=== PATIENT | female | born 1970 | race Caucasian/White ===

== ENCOUNTER 2020-04-02 06:53 | Outpatient (NON) | payer BC, SELFPAY ==
[2020-04-02 21:43] LABS: SARS-CoV-2 RNA PCR Negative
== END 2020-04-02 06:54 ==
PROVIDERS: PCP Family Medicine; Visit Provider Nurse Practitioner Family
DX: Z20.828 Contact with and (suspected) exposure to other viral communicable diseases (principal)
CPT/HCPCS: 87635; C9803; U0003

== ENCOUNTER 2020-04-09 16:52 | Outpatient (CLI) | payer BC, SELFPAY ==
--- NOTE | ~2020-04-09 | MM_ITS ---
EXAMINATION: MM screening [facility] BI w robbie HISTORY: Screening mammogram TECHNIQUE: Craniocaudal and mediolateral oblique 3-D tomosynthesis images were obtained and synthetic 2-D images were generated. CAD analysis was submitted and interpreted. COMPARISON: 11/16/2017, 10/28/2016, 11/05/2014 BREAST PARENCHYMAL COMPOSITION: There are scattered areas of fibroglandular density. FINDINGS: There is no evidence of suspicious mass, calcification, or architectural distortion to sugg est malignancy in either breast. There has been no suspicious interval change. IMPRESSION: 1. No mammographic evidence of malignancy. 2. Recommend routine screening mammography in one year. BI-RADS Category 1: Negative Reviewed, dictated and finalized at location A.
== END 2020-04-09 16:53 | disposition home or self-care (01) ==
PROVIDERS: PCP Family Medicine; Visit Provider Obstetrics & Gynecology
DX: Z12.31 Encounter for screening mammogram for malignant neoplasm of breast (principal)
CPT/HCPCS: 77063; 77067

== ENCOUNTER 2020-12-05 06:47 | Outpatient (CLI) | payer BC, SELFPAY ==
[2020-12-05 07:30] LABS: Hematocrit 42.2 % (37.0-47.0); Hemoglobin 14.6 g/dL (12.0-15.0); Mean Corpuscular HGB Conc 34.6 g/dl (32-36); Mean Corpuscular Hemoglobin 30.8 pg (26-34); Mean Platelet Volume 10.8 fl (7.4-10.4); Platelet Count Result 270 k/mm3 (150-375); Red Blood Count 4.74 M/mm3 (4.2-5.4); Red Cell Distribution Width 11.8 % (11.5-14.5); White Blood Count 4.6 K/mm3 (4.5-10.0)
[2020-12-05 07:41] LABS: Albumin Level 4.5 g/dL (3.5-5.1); Anion Gap 8 mmol/L (8-16); Blood Urea Nitrogen 21 mg/dL (7-17); Calcium 9.5 mg/dL (8.4-10.2); Carbon Dioxide 27 mmol/L (22-30); Chloride 103 mmol/L (98-107); Estimated Glomerular Filt Rate > 60; Glucose 86 mg/dL (65-105); Potassium 3.8 mmol/L (3.4-5.0); Sodium 138 mmol/L (137-145)
[2020-12-05 07:48] LABS: Prealbumin 19.5 mg/dL (17.6-36.0)
[2020-12-05 07:56] LABS: Iron 88 ug/dL (37-170)
== END 2020-12-05 06:48 | disposition home or self-care (01) ==
PROVIDERS: PCP Family Medicine; Visit Provider Surgery Plastic and Reconstructive Surgery
DX: Z01.818 Encounter for other preprocedural examination (principal)
CPT/HCPCS: 36415; 80048; 82040; 83540; 84134; 85027

== ENCOUNTER 2021-01-12 00:24 | Day surgery (SDC) | payer OTHER, SELFPAY ==
[2021-01-05 15:21] VITALS: BMI 27.0
[2021-01-12] VITALS (10 sets, daily range): BP systolic 105–134; BP diastolic 68–80; PULSE 70–88; RESP 12–18; TEMP 36.1–37; O2SAT 96–100; BMI 28.8
--- NOTE | 2021-01-12 06:42 | WPDHPUPDATE1 ---
History and Physical Update Update Date/Time: 01/12/21 06:42 History and Physical has been reviewed, including an updated exam of the patient. There are NO changes in the patient's condition. Risks, benefits, and alternatives have been discussed and questions answered. Patient agrees to proceed with procedure.
--- NOTE | 2021-01-12 06:53 | W.PM.PROC2 ---
Procedure Note - Detailed Date of Procedure 01/12/21 Pre-op Diagnosis skin laxity Post-op Diagnosis same Procedure Performed 1. Progressive tension abdominoplasty 2. Medial thigh lift Surgeon David Bledsoe MD Anesthesia general Findings Port identified ruth-umbilical. No evidence of injury. Placement now just to the left of umbilicus. Port access is at upper aspect of umbilicus where it enters fascia. Lipoaspirate thighs 2,000cc Tissue removed thighs: Right - 147.9 grams Left - 168.5 grams Description of Procedure She is here today for abdominoplasty and medial thigh lift. Previously and again today the risks, benefits, alternatives were discussed in extensive detail. I wanted them to be very realistic about the risks involved as well as expectations. We discussed aftercare and what to monitor for. I was very upfront about the risks of wound breakdown leading to loss of skin, open wounds, and need for additional procedures with permanent abdominal deformity. She understands she will likely have horizontal laxity at the end of the procedure and she declines a vertical scar such as humera toya lis. We discussed DVT/PE risks and management. Made sure answered all of their questions to their satisfaction today and consent was obtained. They were marked in the preoperative holding area with their verification. The patient was taken to the operating room placed supine on the operating table. Anesthesia was provided by anesthesiology. A Hyatt catheter was started. They were prepped and draped in a standard sterile fashion. A surgical time-out was taken. Thighs Stab incisions were made and used a tumescent solution on the thighs. Once adequate time for hemostasis I completed suction lipectomy based on S.A.F.E. technique multiple planes and passes. I completely de-fat of the central resection area. Using a strip avulsion technique a 10 blade was used to make an incision from proximal to distal I removed the intervening soft tissue. This was a closed you go fashion making sure tension-free closure using 2-0 Vicryl followed by 3-0 strata fix in a running subcuticular 4-0 Monocryl. Final coverage was tissue glue. No evidence of neurovascular or other structure injury. Abdomen I placed the patient in a flexed position to verify the upper and lower markings would reach. I then placed supine. A thorough abdominal examination was completed. Stab incisions were made and tumescent solution infiltrated. A liposuction basket cannula was utilized to provide discontinuous undermining. A 10 blade was used to make the upper incision. I continued dissection down to the level of fascia. Elevated just what was necessary for repair of the diastasis. I then again flexed the bed to verify the upper skin flap would reach the lower markings without tension. Once verified I placed her supine once again and a 10 blade used to make the lower incision. I elevated up to level the umbilicus and left the umbilicus intact on a well-vascularized stalk. The intervening tissue was removed. During the dissection port was identified lateral to umbilicus as in findings. No evidence of injury to port. A 2 mm blunt cannula with 0.5% bupivicaine was injected deep to the fascia bilaterally. I plicated the diastasis recti using 0 PDO stratafix barbed suture. This was in 2 separate layers using 2 separate sutures as well. I repaired around the umbilicus leaving plenty of room for well-vascularized stalk of the umbilicus with 2-0 PDS. I also repaired lateral to the rectus using two layers of 0 PDO stratafix. The patient was flexed and starting from superior to inferior began plication using 2-0 Vicryl to obliterate all space in a standard progressive tension fashion. At the umbilicus I marked out the location of the skin and inset this with 3-0 Monocryl and 4-0 Vicryl. I continued the remainder of the plication using 2-0 Vicryl until I reached my
[2021-01-12 07:37] LABS: Urine Cotinine NEGATIVE
--- NOTE | 2021-01-12 07:46 | WPDANESEPPF ---
Anes - Initial Pre Proc Eval Procedure: Operation Date: 01/12/21 08:30 Proposed Procedures p Abdominoplasty, - David Bledsoe MD s Bilateral Medial Thigh Lift - David Bledsoe MD Date/Time: 01/12/21 07:46 Surgeon: David Bledsoe MD Pre Op Diagnosis: skin laxity Patient Data Age: 50 Gender: F Height: 1.68 m Weight: 80.9 kg Last Vital Signs Temp 37.0 C 01/12/21 07:24 Pulse 72 01/12/21 07:24 Resp 16 01/12/21 07:24 BP 107/68 01/12/21 07:24 Pulse Ox 99 01/12/21 07:24 Allergies Allergy/AdvReac Type Severity Reaction Status Date / Time No Known Allergies Allergy Unknown Verified 01/12/21 07:40 Home Medications Medication Instructions Recorded Confirmed Type hydrochlorothiazide 12.5 mg capsule 12.5 mg PO DAILY 12/02/20 01/12/21 History estradiol-norethindrone acet 1 tablet PO DAILY 01/05/21 01/12/21 History triamterene-hydrochlorothiazid 1 tablet PO MONTHLY 01/05/21 01/12/21 History valacyclovir 500 mg PO DAILY 01/05/21 01/12/21 History carisoprodol 350 mg tablet 350 mg PO TID PRN #21 tablet 01/06/21 01/06/21 Rx docusate sodium 100 mg capsule 100 mg PO DAILY #14 cap 01/06/21 Rx ondansetron HCl 4 mg tablet 4 mg PO Q8H #21 tablet 01/06/21 Rx oxycodone-acetaminophen 5 mg-325 1 tablet PO Q6H PRN #15 tablet 01/06/21 01/06/21 Rx mg tablet Laboratory Tests 01/12/21 07:18 Cotinine Negative Patient hx anesthesia problems: none Family hx anesthesia problems: none PMFSH Past Medical History Medical History (Updated 01/12/21 @ 07:46 by Ron Cronin MD) Overweight Surgical History Surgical History (Updated 01/12/21 @ 07:47 by Ron Cronin MD) H/O mastopexy Social History Social History Smoking status: Never smoker Alcohol intake: current Substance use: never Substance use type: does not use Gender identity (if verbalized by the patient): Female Sexual Orientation (if Verbalized by the Patient): Straight or Heterosexual Spiritual care concerns: No Anes - Eval Final PreProcedure Day of Procedure 01/12/21 07:46 Patient weight: overweight Heart: regular rate and rhythm Lungs: clear to auscultation Airway: Mallampati scale class 1 Neurological: alert and oriented Last oral intake: >/= 8 hours ASA classification: II Emergent: no Anesthetic plan: proceed Anesthesia type and monitoring: general GIVS and standard monitoring Informed Consent: The patient's anesthetic plan and its attendant risks and benefits were discussed with the patient/family/POA. Questions were solicited and answers provided to the satisfaction of the patient/family/POA.
[2021-01-12] MEDS: LACTATED RINGERS 1,000 ML 30 ML IV CONT ×2 (08:03→14:54)
--- NOTE | 2021-01-12 08:05 | SUR.PREOP ---
[id number]; RN IN ROOM WHILE DR VÁSQUEZ MARKED PT
--- NOTE | 2021-01-12 08:17 | SUR.PREOP ---
0815; infusing 500ml ivf bolus per orders.
[2021-01-12] MEDS: ceFAZolin 2 GM/D5W 50 ML 2 GM/50 ML BAG IVPB (08:21)
[2021-01-12] MEDS: TRANEXAMIC ACID 1,000MG/ISO100 1,000 MG/100 ML BAG 200 MG IVPB (08:33)
[2021-01-12] MEDS: LACTATED RINGERS IRRIG 1,000 ML, LIDOCAINE HCL 1% LOCAL INJ 50 ML, EPINEPHrine HCL INJ ... INFILTRATE (09:18)
[2021-01-12] MEDS: BUPIVACAINE/EPINEPHRINE 0.5% 50 ML VIAL 100 ML (12:03)
[2021-01-12] MEDS: ceFAZolin SODIUM 1 GM VIAL IV PUSH (12:32)
--- NOTE | 2021-01-12 15:33 | PC.NURSE ---
This patient, Stacy Prater, was received from PACU per bed on 01/12/21 at 1520. Patient oriented to unit policies and routines
[2021-01-12] MEDS: LACTATED RINGERS 1,000 ML 125 ML IV CONT (15:47)
[2021-01-12] MEDS: ONDANSETRON INJ 4 MG/2 ML VIAL IV PUSH (15:53)
[2021-01-12] MEDS: carisoprodoL (*CRX) 350 MG TABLET PO ×2 (17:47→23:42)
[2021-01-12] MEDS: ENOXAPARIN 40 MG/0.4 ML SYRINGE SUB-Q (19:55)
[2021-01-12] MEDS: oxyCODONE/ACETAMINOPHEN (*CRX) 5-325 MG TABLET PO (19:55)
[2021-01-12] MEDS: DOCUSATE SODIUM 100 MG CAPSULE PO (19:55)
[2021-01-13] VITALS: BP 98/56; PULSE 88; RESP 16; TEMP 36.8; O2SAT 96
[2021-01-13] MEDS: oxyCODONE/ACETAMINOPHEN (*CRX) 5-325 MG TABLET PO ×2 (01:50→06:56)
[2021-01-13 04:00] VITALS: BP 102/62; PULSE 84; RESP 16; TEMP 36.8; O2SAT 98
[2021-01-13] MEDS: carisoprodoL (*CRX) 350 MG TABLET PO (05:45)
--- NOTE | 2021-01-13 06:24 | WPDPN ---
Progress Note: A&P Assessment and Plan (1) Skin laxity: Code(s): L57.4 - Cutis laxa senilis Status: Acute Assessment and Plan: She is doing very well after her progressive tension abdominoplasty and medial thigh lift. Will discharge home. Follow-up. Today we had a lengthy discussion about the care. What to monitor for. Activity limitations. Made sure answered all of her questions to her satisfaction today. She understands what is a medical emergency and went to dial 911/ proceed to the emergency room. In the meantime she will call with any questions or concerns. We will see her back. Subjective Date/time seen: 01/13/21 06:00 She is doing very well after progressive tension abdominoplasty and medial thigh lift. Her pain is controlled. She has been ambulating. No fevers or chills. No nausea vomiting. No shortness of breath. No chest pain. No calf tenderness. Review of Systems Review of Systems: All systems reviewed & are unremarkable except as noted in HPI and below Exam Narrative: Alert and oriented no obvious distress Respiratory is nonlabored. Soft. No signs of infection. No hematoma. No seroma. Good color and capillary refill. Bilateral thighs are healing well. No signs of infection. No hematoma. No seroma. Good color and capillary refill. No calf tenderness. Negative Homans. Objective Data Vital Signs Vital Signs: Vital Signs - 24 hr 01/12/21 07:24 01/12/21 13:54 01/12/21 14:05 Temperature 37.0 C 36.1 C L Pulse Rate 72 80 88 Respiratory Rate 16 16 18 Blood Pressure 107/68 114/72 131/75 Pulse Oximetry 99 100 100 01/12/21 14:20 01/12/21 14:23 01/12/21 14:35 Temperature Pulse Rate 70 72 Respiratory Rate 12 16 Blood Pressure 126/79 134/73 Pulse Oximetry 100 100 100 01/12/21 14:50 01/12/21 15:05 01/12/21 15:23 Temperature 36.4 C Pulse Rate 75 72 79 Respiratory Rate 13 14 16 Blood Pressure 131/79 129/80 130/80 Pulse Oximetry 99 100 96 01/12/21 20:00 01/13/21 00:00 01/13/21 04:00 Temperature 36.5 C 36.8 C 36.8 C Pulse Rate 87 88 84 Respiratory Rate 16 16 16 Blood Pressure 105/69 98/56 L 102/62 Pulse Oximetry 99 96 98 Intake/Output Intake/Output: Intake & Output 01/10/21 01/11/21 01/12/21 01/13/21 23:59 23:59 23:59 23:59 Intake Total 1500 Output Total 250 475 Balance 1250 -475 Meds/Results Medications: Active Medications Generic Name Dose Route Start Last Admin Trade Name Freq PRN Reason Stop Dose Admin Acetaminophen 650 mg 01/12/21 20:29 Acetaminophen 325 Mg Tablet PO Q6H PRN Mild Pain (1-3) or Fever Carisoprodol 350 mg 01/12/21 18:00 01/13/21 05:45 Carisoprodol (*Crx) 350 Mg Tablet PO 350 mg Q6HR AARTI Administration Docusate Sodium 100 mg 01/12/21 21:00 01/12/21 19:55 Docusate Sodium 100 Mg Capsule PO 100 mg Q12HR AARTI Administration Enoxaparin Sodium 40 mg 01/12/21 20:00 01/12/21 19:55 Enoxaparin 40 Mg/0.4 Ml Syringe SUB-Q 40 mg DAILY AARTI Administration Hydrochlorothiazide 12.5 mg 01/13/21 09:00 Hydrochlorothiazide 12.5 Mg Capsule PO DAILY [facility] Lactated Ringer's 1,000 mls @ 125 mls/hr 01/12/21 13:45 01/13/21 05:45 Lr - Lactated Ringers Iv IV CONT Not Given .Q8H AARTI Morphine Sulfate 2 mg 01/12/21 13:41 Morphine Sulfate (*Crx) 2 Mg/Ml Inj IV PUSH Q2H PRN Pain Ondansetron HCl 4 mg 01/12/21 13:41 01/12/21 15:53 Ondansetron Inj 4 Mg/2 Ml Vial IV PUSH 4 mg Q6H PRN Administration Nausea Oxycodone/Acetaminophen 1 - 2 tablet 01/12/21 13:41 01/13/21 01:50 Oxycodone/Acetaminophen (*Crx) 5-325 Mg Tablet PO 1 tablet Q6H PRN Administration Pain 7-10 Valacyclovir HCl 500 mg 01/13/21 09:00 Valacyclovir Hcl 500 Mg Tablet PO DAILY [facility] Labs Labs: Laboratory Results - last 24 hr 01/12/21 07:18 Cotinine Negative
--- NOTE | 2021-01-13 06:27 | P.DS_ITS ---
DS: Admitting Diagnosis Admitting Diagnosis Skin laxity DS: Discharge Diagnosis Discharge Diagnosis (1) Skin laxity: Code(s): L57.4 - Cutis laxa senilis Status: Acute DS: Summary Hospital Course Hospital Course: She underwent progressive tension abdominoplasty as well as medial thigh lift. Postoperatively she has done very well. Ambulating. Tolerating diet. Pain controlled. Will discharge home. Time Spent with Patient Time attestation: Total time spent providing and/or coordinating discharge services: Exam Narrative: Alert and oriented no obvious distress Respiratory is nonlabored. Soft. No signs of infection. No hematoma. No seroma. Good color and capillary refill. Bilateral thighs are healing well. No signs of infection. No hematoma. No seroma. Good color and capillary refill. No calf tenderness. Negative Homans. DS: Data Data Completed and Pending Labs on day of discharge: Labs from last 24 hours 01/12/21 07:18 Cotinine Negative Discharge Plan Discharge Patient Disposition: Home, Self-Care Discharge Instructions: POST OPERATIVE DISCHARGE INSTRUCTIONS DAVID BLEDSOE M.D. [facility] PLASTIC SURGERY [facility] [place] [address] * No driving for 24 hours after anesthesia and while you are taking pain medicat ion. * Take all prescribed medication as directed * Diet as tolerated. * No lifting or activity that raises blood pressure for 48 hours. * Regular walking / ambulation. * May shower.. Once you shower do not take pain medication before showering as the combination of medication and heat may cause you to feel dizzy or pass out. * Slowly stand up straight as tolerated over the week. * No straining or lifting more than 20 pounds for 6 weeks. * No pools or tubs for 2 weeks. * Call with any questions or concerns. * Dressing Care: Abdominal binder / leg wraps 23 hours per day. If you have any questions or concerns, please call the office . If it is after hours you will be directed to the religious education coordinator exchange. Shortness of breath, chest pain, or other medical emergency dial 911 / proceed to the Emergency Room. Stand Alone Forms: General Discharge Instructions Follow-up/Referrals: David Bledsoe MD [Physician] - 1 Week Discharge Medications: Continued hydrochlorothiazide 12.5 mg capsule 12.5 mg PO DAILY RF: 0 docusate sodium [Colace] 100 mg capsule 100 mg PO DAILY Qty: 14 RF: 0 ondansetron HCl [Zofran] 4 mg tablet 4 mg PO Q8H Qty: 21 RF: 0 carisoprodol [Soma] 350 mg tablet 350 mg PO TID PRN (Reason: muscle pain) Qty: 21 RF: 0 oxycodone-acetaminophen [Percocet] 5-325 mg tablet 1 tablet PO Q6H PRN (Reason: pain) Qty: 15 RF: 0 valacyclovir 500 mg tablet 500 mg PO DAILY RF: 0 triamterene-hydrochlorothiazid 37.5-25 mg tablet 1 tablet PO MONTHLY RF: 0 estradiol-norethindrone acet 0.5-0.1 mg tablet 1 tablet PO DAILY RF: 0
[2021-01-13 06:30] VITALS: BP 99/50; PULSE 90; RESP 16; TEMP 37.2; O2SAT 100
[2021-01-13 08:15] VITALS: BP 102/56; PULSE 92; RESP 16; TEMP 37.7; O2SAT 98
== END 2021-01-13 09:35 | disposition home or self-care (01) ==
LOC: ANHSURGERY 07:00 → ANHOB2 14:59
PROVIDERS: PCP Family Medicine; Visit Provider Surgery Plastic and Reconstructive Surgery
PROC: (CPT 15830; principal; 2021-01-12 08:30)
PROC: (CPT 15832; 2021-01-12 08:30)
DX: Z41.1 Encounter for cosmetic surgery (principal); L57.4 Cutis laxa senilis; Z79.899 Other long term (current) drug therapy
CPT/HCPCS: 15830; 15847; 15879; 80307; 99199; A9270; J0171; J0690; J1650; J2250; J2270; J2405; J2704; J3010; J7120

== ENCOUNTER 2021-06-01 17:24 | Outpatient (CLI) | payer BC, SELFPAY ==
--- NOTE | ~2021-06-01 | MM_ITS ---
EXAMINATION: MM screening [facility] BI w robbie HISTORY: Screening mammogram TECHNIQUE: Craniocaudal and mediolateral oblique 3-D tomosynthesis images were obtained and synthetic 2-D images were generated. CAD analysis was submitted and interpreted. COMPARISON: 04/09/2020, 11/16/2017, 10/18/2016, 11/05/2014, 08/20/2012 bilateral screening mammogram examin ations BREAST PARENCHYMAL COMPOSITION: There are scattered areas of fibroglandular density. FINDINGS: There is no evidence of suspicious mass, calcification, or architectural distortion to sugg est malignancy in either breast. There has been no suspicious interval change. IMPRESSION: 1. No mammographic evidence of malignancy. 2. Recommend routine screening mammography in one year. BI-RADS Category 1: Negative Reviewed, dictated and finalized at location B. WELDER
== END 2021-06-01 17:25 | disposition home or self-care (01) ==
LOC: ANHIMG 17:26
PROVIDERS: PCP Family Medicine; Visit Provider Obstetrics & Gynecology
DX: Z12.31 Encounter for screening mammogram for malignant neoplasm of breast (principal)
CPT/HCPCS: 77063; 77067

== ENCOUNTER 2021-12-16 19:01 | Emergency (ER) | payer BC, SELFPAY ==
[2021-12-16 19:11] VITALS: BP 127/77; PULSE 92; RESP 16; O2SAT 96
[2021-12-16] MEDS: IBUPROFEN 600 MG TABLET PO (19:37)
[2021-12-16 19:59] LABS: Basophils Absolute Auto 0.1 K/mm3 (0.0-0.1); Basophils Percent Auto 0.6 % (0.2-1.2); Eosinophils Absolute Auto 0.2 K/mm3 (0-0.3); Eosinophils Percent Auto 2.8 % (0-4.4); Hematocrit 42.7 % (37.0-47.0); Hemoglobin 14.2 g/dL (12.0-15.0); Immature Granulocyte Absolute 0.02 K/mm3 (0.00-0.031); Immature Granulocyte Percent A 0.3 % (0-0.5); Lymphocytes Absolute Auto 1.69 K/mm3 (0.9-3.2); Lymphocytes Percent Auto 21.5 % (18.3-44.2); Mean Corpuscular HGB Conc 33.3 g/dl (32-36); Mean Corpuscular Hemoglobin 29.9 pg (26-34); Mean Corpuscular Volume 89.9 fl (80-100); Mean Platelet Volume 10.5 fl (7.4-10.4); Monocytes Absolute Auto 0.8 K/mm3 (0.1-0.6); Monocytes Percent Auto 9.5 % (2.6-8.5); Neutrophils Absolute Auto 5.1 K/mm3 (1.3-6.7); Neutrophils Percent Auto 65.3 % (45.5-73.1); Platelet Count Result 303 k/mm3 (150-375); Red Blood Count 4.75 M/mm3 (4.2-5.4); Red Cell Distribution Width 12.1 % (11.5-14.5); White Blood Count 7.9 K/mm3 (4.5-10.0)
[2021-12-16 20:17] LABS: Alanine Aminotransferase 17 U/L (6-35); Albumin Level 4.3 g/dL (3.5-5.1); Alkaline Phosphatase 74 U/L (38-126); Anion Gap 5 mmol/L (8-16); Aspartate Amino Transferase 24 U/L (14-36); Bilirubin,Total 0.3 mg/dL (0.2-1.3); Blood Urea Nitrogen 15 mg/dL (7-17); Calcium 8.8 mg/dL (8.4-10.2); Carbon Dioxide 29 mmol/L (22-30); Chloride 100 mmol/L (98-107); Estimated CRCL calculation 78 ml/min; Estimated Glomerular Filt Rate > 60; Glucose 94 mg/dL (65-110); Potassium 3.7 mmol/L (3.4-5.0); Sodium 134 mmol/L (137-145)
--- NOTE | 2021-12-16 20:28 | ED.GENADULT ---
HPI - General Adult General Chief complaint: Extremity Problem,Nontraumatic Stated complaint: lower extremity Time Seen by Provider: 12/16/21 19:04 Source: RN notes reviewed History of Present Illness HPI narrative: Patient presents emergency department from home for left leg pain. Patient states that she returned from a transatlantic flight from [place] on Monday she states that yesterday she began to notice redness and firmness in her left medial thigh just proximal to her knee states it is over her scar from her previous thigh left that was performed by Dr. Verma in January 2021. She denies any known direct trauma or injury she denies any other pain in her leg she has no chest pain or shortness of breath states that she is not take any medication for the symptoms today there is no pain with movement of her knee Related Data Home Medications Medication Instructions Recorded Confirmed hydrochlorothiazide 12.5 mg capsule 12.5 mg PO DAILY 12/02/20 01/12/21 estradiol-norethindrone acet 0.5 1 tablet PO DAILY 01/05/21 01/12/21 mg-0.1 mg tablet triamterene 37.5 1 tablet PO MONTHLY 01/05/21 01/12/21 mg-hydrochlorothiazide 25 mg tablet valacyclovir 500 mg tablet 500 mg PO DAILY 01/05/21 01/12/21 Allergies Allergy/AdvReac Type Severity Reaction Status Date / Time No Known Allergies Allergy Unknown Verified 12/16/21 19:18 Review of Systems Review of Systems: Gen.: Denies fevers or chills ENT: Denies congestion Respiratory: Denies shortness of breath or cough CV: Denies chest pain or palpitations Musculoskeletal: See HPI Neuro: Denies numbness, tingling, weakness or focal weakness Skin: Reports leg redness Except as documented, all other systems reviewed and negative [facility] Past Medical History Medical History (Updated 12/16/21 @ 20:32 by Gabe Hilario DO) Overweight Patient denies significant medical history Surgical History Surgical History H/O mastopexy Social History Social History Alcohol intake: current Substance use: never Substance use type: does not use Gender identity (if verbalized by the patient): Female Sexual Orientation (if Verbalized by the Patient): Straight or Heterosexual Spiritual care concerns: No Exam Narrative: APPEARANCE: No acute distress, nontoxic, resting in bed Eyes: EOMI HEENT: Normocephalic, atraumatic, RESPIRATORY: No respiratory distress MUSCULOSKELETAl: Left medial thigh just proximal to the knee has a circular area of erythema with centralized firmness there is no fluctuance there is no open wound there is no tenderness of the knee or hip with full range of motion of both the area of erythema is directly over the distal aspect of previous scar from thigh lift, no opening of the scar dorsalis pedis pulses 2+ neurovascularly intact no calf tenderness NEURO: Awake and alert. Following commands, speech normal, no focal deficits SKIN:: Warm, dry. Normal Color no rash or lesions Course Course Emergency Course: Discussed with Dr. Ku states that patient would have had dissolvable sutures agrees with plan for ultrasounds outpatient Discussed with Vianey Harvey for Dr. Lutz agrees with plan for ultrasound in a.m. discussed patient home on ibuprofen and Keflex with plan for ultrasound in morning Discussed with patient results of workup and diagnosis. Discussed need for follow-up with primary care, proper use of medication, and reasons to return to the emergency department. Patient understands and agrees to current treatment plan Vital Signs Vital signs: Vital Signs Pulse Rate 92 12/16/21 19:11 Respiratory Rate 16 12/16/21 19:11 Blood Pressure 127/77 12/16/21 19:11 Pulse Oximetry 96 12/16/21 19:11 Oxygen Delivery Room Air 12/16/21 19:11 Pulse Rate 92 12/16/21 19:11 Respiratory Rate 16 12/16/21 19:11 Blood Pressu
[2021-12-16] MEDS: ENOXAPARIN 80 MG/0.8 ML SYRINGE SUB-Q (20:32)
[2021-12-16] MEDS: CEPHALEXIN 500 MG CAPSULE PO (20:32)
[2021-12-16 20:43] VITALS: BP 127/77; PULSE 91; RESP 16; O2SAT 97
== END 2021-12-16 20:42 | disposition home or self-care (01) ==
PROVIDERS: Emergency Provider Emergency Medicine; PCP Family Medicine
DX: I80.02 Phlebitis and thrombophlebitis of superficial vessels of left lower extremity (principal)
CPT/HCPCS: 36415; 80053; 85025; 85610; 85730; 96372; 99283; A9270; J1650

== ENCOUNTER 2021-12-17 06:51 | Outpatient (CLI) | payer BC, SELFPAY ==
--- NOTE | ~2021-12-17 | US_ITS ---
EXAMINATION: US venous doppler [facility] DATE: 12/17/2021 07:34 INDICATION: Phlebitis and thrombophlebitis with left lower limb swelling TECHNIQUE: Grayscale ultrasound images without and with compression and Doppler ultrasound images of the left lower extremity veins were obtained. COMPARISON: None. FINDINGS: The visualized portions of left common femoral vein, profunda (deep) femoral vein, femoral vein, popl iteal vein, peroneal veins, posterior tibial veins, gastrocnemius vein and greater saphenous vein out flow are patent. There is edema surrounding a 2.1 x 1.9 x 1.0 cm anechoic fluid collection at the med ial aspect of the left knee. IMPRESSION: 1. No deep venous thrombosis in the left lower limb. 2. Edema surrounding a nonspecific 2.1 x 1.9 x 1.0 cm anechoic fluid collection at the medial aspect of the left knee which could represent an abscess or hematoma/seroma. Reviewed, dictated and finalized at location A. IMPRESSION: 1. No deep venous thrombosis in the left lower limb. 2. Edema surrounding a nonspecific 2.1 x 1.9 x 1.0 cm anechoic fluid collection at the medial aspect of the left knee which could represent an abscess or caren kamla/seroma.
== END 2021-12-17 06:52 | disposition home or self-care (01) ==
PROVIDERS: PCP Family Medicine; Visit Provider Emergency Medicine
DX: I80.9 Phlebitis and thrombophlebitis of unspecified site (principal); M79.89 Other specified soft tissue disorders
CPT/HCPCS: 93971

== ENCOUNTER 2022-07-09 08:00 | Emergency (ER) | payer BC, SELFPAY ==
--- NOTE | 2022-07-09 08:08 | ED.GENADULT ---
HPI - General Adult General Chief complaint: Urogenital-Female Stated complaint: UTI SYMPTOMS Time Seen by Provider: 07/09/22 08:08 Source: patient Mode of arrival: ambulatory Limitations: no limitations History of Present Illness HPI narrative: 51-year-old female patient presents to the [facility] with complaints of urinary pain and frequency for the past 4 days. Patient states that she just had a liposuction that about 2 and half weeks ago and was on some antibiotics. Patient states she took 21 pills over the course of 9 days. Patient states that she her symptoms were originally a yeast infection because she tends to get yeast infections after antibiotic use and did have some fluconazole at home so took that however her symptoms have not improved. Patient complaining of pain with urination, frequency burning towards the end of her stream. Denies any low back pain. Denies any abdominal pain, nausea, vomiting or diarrhea. Denies any fevers, body aches or chills. Related Data Home Medications Medication Instructions Recorded Confirmed hydrochlorothiazide 12.5 mg capsule 12.5 mg PO DAILY 12/02/20 07/09/22 estradiol-norethindrone acet 0.5 1 tablet PO DAILY 01/05/21 01/12/21 mg-0.1 mg tablet triamterene 37.5 1 tablet PO MONTHLY 01/05/21 07/09/22 mg-hydrochlorothiazide 25 mg tablet valacyclovir 500 mg tablet 500 mg PO DAILY 01/05/21 07/09/22 Allergies Allergy/AdvReac Type Severity Reaction Status Date / Time No Known Allergies Allergy Unknown Verified 07/09/22 08:09 Review of Systems Review of Systems: CONSTITUTIONAL: Denies fever, chills, or sweats. EYES: Denies visual changes, redness, or discharge. ENT: Denies rhinorrhea, congestion, sore throat, or otalgia. CARDIOVASCULAR: Denies chest pain, palpitations, or edema. RESPIRATORY: Denies cough or dyspnea. GASTROINTESTINAL: Denies abdominal pain, nausea, vomiting, or diarrhea. GENITOURINARY: Positive dysuria , denies hematuria. SKIN: Denies rash or itching. MUSCULOSKELETAL: Denies back pain, joint pain, or myalgia. NEUROLOGIC: Denies headache, numbness, or weakness. PSYCHIATRIC: Denies anxiety or depression. [facility] Past Medical History Medical History (Updated 07/09/22 @ 08:24 by MARTIN [place]) Kidney stones Overweight Patient denies significant medical history Surgical History Surgical History (Updated 07/09/22 @ 08:17 by MARTIN [place]) H/O eye surgery H/O mastopexy Hx of cosmetic surgery LAP-BAND surgery status Social History Social History Smoking status: Unknown if ever smoked Alcohol intake: current Substance use: never Substance use type: does not use Gender identity (if verbalized by the patient): Female Sexual Orientation (if Verbalized by the Patient): Straight or Heterosexual Spiritual care concerns: No Exam Narrative: GENERAL: Well-appearing, well-nourished, and in no acute distress. HEAD: Normocephalic, atraumatic. EYES: PERRLA and EOMI. ENT: Nares clear, no rhinorrhea or epistaxis. Mucous membranes moist. NECK: Supple. No lymphadenopathy CHEST: Clear to auscultation. No respiratory distress. HEART: Regular rate and rhythm. No murmur heard. Normal peripheral pulses. ABDOMEN: Soft, nontender, nondistended, normal active bowel sounds. no CVA tenderness on percussion EXTREMITIES: Normal range of motion. No edema. SKIN: Warm, dry, no rash. NEURO: No focal deficits. Alert and oriented x3. Course Course Level of Care: Express Care Visit Vital Signs Vital signs: Vital Signs Temperature 37.0 C 07/09/22 08:18 Pulse Rate 89 07/09/22 08:18 Respiratory Rate 16 07/09/22 08:18 Blood Pressure 113/83 07/09/22 08:18 Pulse Oximetry 100 07/09/22 08:18 Temperature 37.0 C 07/09/22 08:18 Pulse Rate 89 07/09/22 08:18 Respiratory Rate 16 07/09/22 08:18 Blood Pressure 113/83 07/09/22 08:18 Pulse Oximetry 100 07/09/22 08:18
[2022-07-09 08:18] VITALS: BP 113/83; PULSE 89; RESP 16; TEMP 37; O2SAT 100
== END 2022-07-09 08:31 | disposition home or self-care (01) ==
PROVIDERS: Emergency Provider Nurse Practitioner Family; PCP Family Medicine
DX: N39.0 Urinary tract infection, site not specified (principal)
CPT/HCPCS: 81003; 87077; 87086; 87186; 99213; G0463

== ENCOUNTER 2022-10-12 18:37 | Emergency (ER) | payer BC, SELFPAY ==
[2022-10-12 18:45] VITALS: BP 108/78; PULSE 91; RESP 16; TEMP 36.2; O2SAT 98
--- NOTE | 2022-10-12 18:58 | ED.EYEPROB ---
HPI - Eye Problem General Chief complaint: Eye Problems Stated complaint: SWOLLEN RED AREA TO EYELID Time Seen by Provider: 10/12/22 18:50 Source: patient, RN notes reviewed and old records reviewed Mode of arrival: ambulatory Limitations: no limitations History of Present Illness HPI Narrative: 51-year-old female who presents to [facility] with 6 day duration of lesion to the upper eyelid. Patient reports that she has used warm compresses to her left eye without resolution of lesion. Patient denies any change in her vision,no drainage noted from her left eye, no itching. Patient reports that she is presently on oral clindamycin for UTI. MD chief complaint: other (stye to lateral aspect of left upper eyelid) Onset (ago): day(s) (6 days) Severity scale (1-10): 2 Treatments Prior to Arrival: other (warm compress) Related Data Home Medications Medication Instructions Recorded Confirmed hydrochlorothiazide 12.5 mg capsule 12.5 mg PO DAILY 12/02/20 10/12/22 triamterene 37.5 1 tablet PO MONTHLY 01/05/21 10/12/22 mg-hydrochlorothiazide 25 mg tablet valacyclovir 500 mg tablet 500 mg PO DAILY 01/05/21 10/12/22 Allergies Allergy/AdvReac Type Severity Reaction Status Date / Time No Known Allergies Allergy Unknown Verified 10/12/22 19:02 Review of Systems Review of Systems: CONSTITUTIONAL: Denies fever, chills, or sweats. EYES: Denies visual changes. Reports redness,, irritation, no discharge, swollen red raised lesion to the outer left upper eyelid, tender with palpation ENT: Denies rhinorrhea, congestion, sore throat, or otalgia. CARDIOVASCULAR: Denies chest pain, palpitations, or edema. RESPIRATORY: Denies cough or dyspnea. SKIN: Denies rash or itching. NEUROLOGIC: Denies headache All systems reviewed & are unremarkable except as noted in HPI and below PMFSH Past Medical History Medical History Kidney stones Overweight Patient denies significant medical history Surgical History Surgical History H/O eye surgery H/O mastopexy Hx of cosmetic surgery LAP-BAND surgery status Social History Social History (Reviewed 10/12/22 @ 19:23 by MARTINA [place] Smoking status: Unknown if ever smoked Alcohol intake: current Substance use: never Substance use type: does not use Gender identity (if verbalized by the patient): Female Sexual Orientation (if Verbalized by the Patient): Straight or Heterosexual Spiritual care concerns: No Comments At time of signature, agree with nursing past medical, surgical, social and family history. There is no relevant family history pertinent to the presenting complaint Exam Narrative: GENERAL: Well-appearing, well-nourished, and in no acute distress. HEAD: Normocephalic, atraumatic. EYES: PERRLA and EOMI. Upper and lower eyelids unremarkable of right eye. Upper left eyelid has red raised lesion to the outer area, no drainage, tender on palpation. No periorbital cellulitis noted. Sclera and conjunctivae clear ENT: Nares clear, no rhinorrhea or epistaxis. Mucous membranes moist. NECK: Supple. no lymphadenopathy SAO2 98% on room air CHEST: Clear to auscultation. No respiratory distress. HEART: Regular rate and rhythm. No murmur heard. Normal peripheral pulses. SKIN: Warm, dry, no rash. NEURO: No focal deficits. Alert and oriented x3. Course Course Emergency Course: Patient is aware of diagnosis, understands and agrees to treatment plan. Anticipatory guidance given. Patient agrees to follow-up as directed and is aware of reasons to seek care at the emergency department. Portions of this record may have been created with voice recognition software Level of Care: Express Care Visit Vital Signs Vital signs: Vital Signs Temperature 36.2 C L 10/12/22 18:45 Pulse Rate 91 10/12/22 18:45 Respiratory Rate 16 10/12/22 18:45 Blood Pressure
== END 2022-10-12 19:10 | disposition home or self-care (01) ==
PROVIDERS: Emergency Provider Registered Nurse; PCP Family Medicine
DX: H00.014 Hordeolum externum left upper eyelid (principal)
CPT/HCPCS: 99213; G0463

== ENCOUNTER 2022-10-14 15:47 | Outpatient (CLI) | payer BC, SELFPAY ==
--- NOTE | ~2022-10-14 | MM_ITS ---
EXAMINATION: MM screening [facility] BI w robbie HISTORY: Screening mammogram TECHNIQUE: Craniocaudal and mediolateral oblique 3-D tomosynthesis images were obtained and synthetic 2-D images were generated. CAD analysis was submitted and interpreted. COMPARISON: 06/01/2021, 04/09/2020, 11/16/2017 BREAST PARENCHYMAL COMPOSITION: There are scattered areas of fibroglandular density. FINDINGS: No suspicious mass, calcification, or architectural distortion are identified in either brandon ast to suggest malignancy. There has been no suspicious interval change. IMPRESSION: 1. No mammographic evidence of malignancy. 2. Recommend routine screening mammography in one year. BI-RADS Category 1: Negative Reviewed, dictated and finalized at location A.
== END 2022-10-14 15:48 | disposition home or self-care (01) ==
LOC: ANHIMG 15:57
PROVIDERS: PCP Family Medicine; Visit Provider Obstetrics & Gynecology
DX: Z12.31 Encounter for screening mammogram for malignant neoplasm of breast (principal)
CPT/HCPCS: 77063; 77067

== ENCOUNTER 2022-11-04 17:33 | Emergency (ER) | payer BC, SELFPAY ==
--- NOTE | 2022-11-04 17:35 | ED.FEMALEGU ---
HPI - Female Genitourinary General Chief complaint: Urogenital-Female Stated complaint: UTI SYMPTOMS Time Seen by Provider: 11/04/22 17:34 Source: patient Mode of arrival: ambulatory Limitations: no limitations History of Present Illness HPI Narrative: Patient is a 51-year-old female presenting with urinary frequency, urgency, burning with urination and blood clots in urine that started today. Patient was recently diagnosed and treated for UTI within the last 10 days. Patient states symptoms resolved but have returned even worse today. Denies any low back pain, fever, nausea, vomiting, diarrhea. MD elicited complaint: dysuria Related Data Home Medications Medication Instructions Recorded Confirmed hydrochlorothiazide 12.5 mg capsule 12.5 mg PO DAILY 12/02/20 11/04/22 valacyclovir 500 mg tablet 500 mg PO DAILY 01/05/21 11/04/22 tirzepatide 10 mg/0.5 mL 10 mg subcut WEEKLY 11/04/22 11/04/22 subcutaneous pen injector (Mounjaro) Allergies Allergy/AdvReac Type Severity Reaction Status Date / Time No Known Allergies Allergy Unknown Verified 11/04/22 17:50 Review of Systems Review of Systems: All systems reviewed & are unremarkable except as noted in HPI and below Constitutional: Constitutional: Denies chills, Denies fever(s), Denies headache(s), Denies malaise and Denies weakness Eyes: Eyes: Denies change in vision, Denies eye discharge and Denies irritation ENT: Denies otalgia, Denies headache(s), Denies nasal congestion, Denies nasal discharge, Denies sinus pain and Denies sore throat Cardiovascular: Cardiovascular: Denies chest pain, Denies edema, Denies palpitations and Denies dyspnea Respiratory: Respiratory: Denies cough and Denies dyspnea Gastrointestinal: Gastrointestinal: Denies abdominal pain, Denies diarrhea, Denies nausea and Denies vomiting Genitourinary: Genitourinary: Reports hematuria, Reports nocturia, Reports dysuria, Denies flank pain and Reports urinary urgency Musculoskeletal: Musculoskeletal: Denies back pain and Denies numbness Integumentary/Breasts: Skin/Breast: Denies pruritus and Denies rash Neurologic: Denies headache(s), Denies numbness and Denies weakness Psychiatric: Psychiatric: Reports no additional psychiatric complaints Endocrine: Endocrine: Denies palpitations PMFSH Past Medical History Medical History Kidney stones Overweight Patient denies significant medical history Surgical History Surgical History H/O eye surgery H/O mastopexy Hx of cosmetic surgery LAP-BAND surgery status Social History Social History Smoking status: Unknown if ever smoked Alcohol intake: current Substance use: never Substance use type: does not use Gender identity (if verbalized by the patient): Female Sexual Orientation (if Verbalized by the Patient): Straight or Heterosexual Spiritual care concerns: No Comments At time of signature, agree with nursing past medical, surgical, social and family history. There is no relevant family history pertinent to the presenting complaint. Exam Const: General: cooperative, healthy appearing, comfortable, no acute distress and well nourished Nutritional Appearance: well nourished Orientation/consciousness: patient oriented x3 HENMT: Head: normocephalic and atraumatic Ears: external ears normal Face/Nose/Sinus: Normal external nose present, Normal nares present and normal facial exam Face and sinus: normal facial exam Eyes: General: appearance normal, both eyes and all related structures Pupils: Equal, round and reactive pupils present EOM: EOMs intact bilaterally Neck: Neck: normal visual inspection, full ROM and supple Chest: Chest palpation & inspection: normal inspection of the chest Resp: Effort & Inspection: normal respiratory effort and able to speak in
[2022-11-04 17:48] VITALS: BP 102/75; PULSE 92; RESP 16; TEMP 36.6; O2SAT 98
== END 2022-11-04 18:45 | disposition home or self-care (01) ==
PROVIDERS: Emergency Provider Nurse Practitioner Family; PCP Family Medicine
DX: N39.0 Urinary tract infection, site not specified (principal)
CPT/HCPCS: 81003; 87077; 87086; 87186; 99213; G0463

== ENCOUNTER 2024-04-13 08:01 | Emergency (ER) | payer BC, SELFPAY ==
[2024-04-13 08:18] VITALS: BP 99/67; PULSE 117; RESP 16; TEMP 38.1; O2SAT 99
[2024-04-13 08:28] LABS: EDSTREPNEGPOS1 Negative (Negative)
--- NOTE | 2024-04-13 08:33 | ED_ITS ---
HPI - URI/Sore Throat General Chief Complaint: Upper Respiratory Infection Stated Complaint: strep Time Seen by Provider: 04/13/24 08:33 History of Present Illness HPI Narrative: 53 y/o female presented for c/o cough x2 days and yesterday started with a sore throat. Pt returned from [place] 4 days ago, says a travel partner has GI symptoms. Pt denies sob, wheezing, n/v/d or lethargy. Taking nyquil. Tested negative for covid yesterday at home. Hx tonsillectomy. Related Data Home Medications Medication Instructions Recorded Confirmed valacyclovir 500 mg tablet 500 mg PO DAILY 01/05/21 04/13/24 Allergies Allergy/AdvReac Type Severity Reaction Status Date / Time No Known Allergies Allergy Unknown Verified 04/13/24 08:29 Review of Systems Review of Systems: CONSTITUTIONAL: Reports body aches, fever, chills. EYES: Denies visual changes, redness, or discharge. ENT: Reports sore throat Denies rhinorrhea, congestion, or otalgia. CARDIOVASCULAR: Denies chest pain, palpitations, or edema. RESPIRATORY: Reports cough Denies dyspnea. GASTROINTESTINAL: Denies abdominal pain, nausea, vomiting, or diarrhea. SKIN: Denies rash PMFSH Past Medical History Medical History Kidney stones Overweight Patient denies significant medical history Surgical History Surgical History H/O eye surgery H/O mastopexy Hx of cosmetic surgery LAP-BAND surgery status Social History Social History Smoking status: Unknown if ever smoked Alcohol intake: current Substance use: never Substance use type: does not use Gender identity (if verbalized by the patient): Female Sexual Orientation (if Verbalized by the Patient): Straight or Heterosexual Spiritual care concerns: No Exam Narrative: GENERAL: Mildly Ill-appearing, no acute distress. EYES: conjunctivae clear ENT: Mucous membranes moist. TM pearly arenas with normal light reflex bilaterally; no tragal tenderness. Oropharynx not erythematous and without lesions. Tonsils absent. No drooling, no hoarseness, no trismus, uvula midline. No tripod positioning, hot potato voice, or soft palate swelling. NECK: Supple. No lymphadenopathy CHEST: Clear to auscultation, breath sounds equal. No respiratory distress, speaks in full sentences. HEART: Regular rate and rhythm. No murmur heard. SKIN: Warm, dry, no rash. NEURO: Alert and oriented x3. Course Course Emergency Course: Patient is aware of diagnosis, understands and agrees to treatment plan. Anticipatory guidance given. Patient agrees to follow-up as directed and is aware of reasons to seek care at the emergency department. Portions of this record may have been created with voice recognition software Level of Care: Express Care Visit Vital Signs Vital signs: Vital Signs Temperature 100.5 F H 04/13/24 08:18 Pulse Rate 117 H 04/13/24 08:18 Respiratory Rate 16 04/13/24 08:18 Blood Pressure 99/67 L 04/13/24 08:18 Pulse Oximetry 99 04/13/24 08:18 Temperature 100.5 F H 04/13/24 08:18 Pulse Rate 117 H 04/13/24 08:18 Respiratory Rate 16 04/13/24 08:18 Blood Pressure 99/67 L 04/13/24 08:18 Pulse Oximetry 99 04/13/24 08:18 MDM - URI/Sore Throat MDM Narrative Medical decision making narrative: Negative flu, COVID, and strep result reviewed with pt. Advise supportive treatments. Patient is appropriate for outpatient treatment and follow-up. Differential Diagnosis Differential diagnosis: Likely upper respiratory infection, viral infection and pharyngitis Lab Data Labs: Lab Results 04/13/24 Range/Units 08:19 POC Grp A Strep Screen Negative (Negative) Discharge Plan Discharge Clinical Impression: Upper respiratory infection Patient Disposition: Home, Self-Care Condition: Stable Instructions: Antibiotic Form, Upper Respiratory Infection (ED) Additional Instructions: Flu and COVID negative Rapid strep swab was negative today You will be notified in a few days if the culture comes back positive for strep, and appropriate antibiotics will be called in at that time. if symptoms are due to a viral illness, it is not treated with antibiotics. Viral symptoms can be present for up to 10-14 days. Recommend Flonase spray and Zyrtec for sinus congestion Cough syrup may cause drowsiness; avoid driving or take it at night time. Tylenol every 8 hours as needed for pain/fever Soft foods, cool liquids, warm tea. Gargle with warm saltwater twice a day. Chloraseptic spray and throat lozenges. Rest and stay hydrated. --Follow up with your PCP --Go to the ER immediately if you cannot swallow your saliva, trouble breathing/wheezing, throat swelling, pain is persistent and severe Prescriptions: No Action valacyclovir 500 mg tablet 500 mg PO DAILY Patient Comments: FOR HSV COLD SORES Follow-up/Referrals: Nelda,Alana Pierson MD [Primary Care Provider] - Time of Disposition: 09:02
[2024-04-13 09:00] LABS: EDCOVIDSCREEN Negative (Negative); EDINFLUASCREEN Negative (Negative); EDINFLUBSCREEN Negative (Negative)
== END 2024-04-13 09:07 | disposition home or self-care (01) ==
PROVIDERS: Emergency Provider Nurse Practitioner Family; PCP Family Medicine
DX: J06.9 Acute upper respiratory infection, unspecified (principal); Z20.822 Contact with and (suspected) exposure to COVID-19
CPT/HCPCS: 87081; 87426; 87804; 87880; 99213; G0463

== ENCOUNTER 2024-08-28 15:19 | Outpatient (CLI) | payer BC, SELFPAY ==
--- NOTE | ~2024-08-28 | MM_ITS ---
EXAMINATION: MM screening tom BI w robbie HISTORY: Screening TECHNIQUE: Craniocaudal and mediolateral oblique 3-D tomosynthesis images were obtained and synthetic 2-D images were generated. CAD analysis was submitted and interpreted. COMPARISON: Comparison to multiple prior studies sequentially, with oldest reviewed study dated 11/05. BREAST PARENCHYMAL COMPOSITION: Not dense: There are scattered areas of fibroglandular density. FINDINGS: There is no evidence of suspicious mass, calcification, or architectural distortion to sugg est malignancy in either breast. There has been no suspicious interval change. IMPRESSION: 1. No mammographic evidence of malignancy. 2. Recommend routine screening mammography in one year. BI-RADS Category 1: Negative Reviewed, dictated and finalized at location B.
--- OUTSIDE RECORDS SUMMARY | 2024-08-28 17:02 | XMS_ITS | Clinical Summary ---
Author Organization [facility] Address [address] [place] [address] Care Team Providers Care Platform Inspector Name Role Phone Unavailable Primary Care Provider Unavailabl e Immunizations Immunization Administration Dates Next Due Covid-19, Mrna, Lnp-s, PF, 1 00 mcg/0.5 mL Dose (Moderna) 04/16/2021 Social History Tobacco Use Types Packs/Day Years Used Date Smoking Tobacco: Never Assessed Comments Unknown Sex and Gender Information Value Date Recorded Sex Assigned at Not on file Legal Sex Female 8:53 AM CDT Gender Identity Not on file Sexual Orientation Not on file Plan of Treatment Health Maintenance Due Date Last Done Comments Hepatitis C Virus (HCV) Screening 1970 Mammogram 1970 Hepatitis B Immunization (1 of 3 - 19+ 3-dose series) 1989 Pap Smear 12/16/1991 Cervical Cancer Screening (CCS) 2000 HPV/Cotest 2000 Colonoscopy 12/16/2015 Colorectal Cancer Screening 12/16/2015 Cologuard 2020 Immunochemical Fecal Occult Blood 2020 Pneumococcal Immunization (5 0+ years) (1 of 1 - PCV) 2020 Zoster Immunization (1 of 2) 2020 Influenza Immunization (#1) 2024 09/0 02/2021, 08/01/2017 SARS-COV-2 Immunization ( season) 2024 04/16/2021, 08/14/2020, 07/17/2020 Respiratory Syncytial Virus (RSV) Immunization (Adult) (1 - 1-dose 75+ series) 2045 DTaP/Tdap/Td Immunization Discontinued 08/01/2017 TdaP Immunization Completed 08/01/2017 Meningococcal Immunization (ACWY) Aged Out No longer eligible based on patient's age to complete this topic Pneumococcal Immunization Combined Aged Out No longer eligible based on patient's age to complete this topic Rotavirus Immunization Aged Out No lo nger eligible based on patient's age to complete this topic
--- OUTSIDE RECORDS SUMMARY | 2024-08-28 17:02 | XMS_ITS | Data Portability ---
Author Organization [place] - [facility] [employer], Main Office Address [address] [place] [address] Care Team Providers Care Collar Starcher Name Role Phone MEERA LUTZ Primary Care Provider MEERA LUTZ Referring Provider [phone] Assessment Encounter Date Assessment Date Assessment LastModified by Organization Details LastModified Time 09/20/2023 09/20/2023 52-year-old patient presents today with right shoulder pain that has been going on since June. She has recently been caring for her mom which involves some lifting and doing more with her arms. She feels a throbbing and tight pain, especially when reaching behind. She has had frozen shoulder in the past and is worried that this is happening again. For treatment she has tried massages, seeing a chiropractor, and muscle relaxers. She is also experiencing tightness and pain that starts in the neck and shoots down her back. She denies any injuries. review of systems per patient questionnaire Imaging: X-rays reviewed show no acute bony abnormality, no fracture. Preserved joint spaces throughout. Physical exam: No pain with palpitation around the shoulder. Range of motion 140 / 20/ back pocket. Five out of work to do cuff strength. Negative Ole's, Dinero. Positive spurlings. Sensation intact throughout. We will start with a course of physical therapy to help with her range of motion in the shoulder. We will also have her work on neck stretches while she is there. She can try taking anti-inflammatori es and using topical creams as well. We will see her back in 4-6 weeks to check her progress. [email or web address] Not available 09/22/2023 13:25:37 11/27/2023 11/27/2023 52-year-old female presents for follow-up for right shoulder. She has some frozen shoulder that we treated conservatively with a course of physical therapy. She reports that has been helping, but she still has pain at night which wakes her up and feels limited in her daily activities including putting on her bra. She currently rates her pain as 4/10. He has no focal tenderness. Elevation 140, external rotation 80 and internal rotation 20 at 90 of abduction. She has 150/ 60 / 90 on the other side. 5/5 rotator cuff strength She has persistent frozen shoulder. We discussed a cortisone injection which she elected to proceed with an tolerated well. She should continue working with physical therapy and working on stretching exercises. We discussed that this usually improves, but takes some time. She may follow-up as needed. [email or web address] Not available 11/27/2023 10:04:54 Plan of Treatment Reminders Order Date Submit Date Provider Last Modified By Organization Details Last Modified Time Details Appointments None recorded. Lab TSH, serum or plasma 2022 ALMAZ Not available 3 11:57:38 HbA1c (hemoglobin A1c), blood 2022 ALMAZ Not available 3 16:37:13 urinalysis complete, reflex culture 2022 [email or web address] Not available 3 07:50:17 lipid panel, serum 2022 ALMAZ Not available 3 11:48:16 BMP, serum or plasma 2022 023 ALMAZ Not available 3 11:48:26 magnesium, serum or plasma 2022 ALMAZ Not available 3 11:48:31 CBC w/ auto diff 2022 ALMAZ Not available 3 11:03:15 vitamin B12, serum 2022 ALMAZ Not available 3 13:15:25 iron + total iron-bindin g capacity (TIBC), serum 2022 023 ALMAZ Not available 3 11:25:21 ferritin, serum or plasma 2022 023 ALMAZ Not available 3 11:57:05 vitamin D, 25-hydroxy, total, serum 2022 023 ALMAZ Not available 3 16:37:12 urinalysis, dipstick 2022 023 [facility] [address], [place], [address], 3 15:48:41 urinalysis complete, reflex culture [email or web address] (Lab), [address] [place], [address], 3 15:36:09 Referral physical therapist referral - EVAL AND TREATADDITI ONAL DX: NECK PAIN M54.2 2023 024 [facility], [address] [place], [address], 4 19:10:13 Procedures injection/a spiration joint/bursa (PROC) - in office procedure, administere d by provider 2023 024 [email or web address] In-Office Order, Internal Use Only DO Not Attach Compendium DO Not Attach Compendium, Do Not Delete/merge, [id number] 4 11:39:23 Surgeries None recorded. Imaging XR, shoulder 2023 024 [email or web address] [facility], [address], [place], [address], 4 12:59:21 Medication Orders Kenalog 10 mg/mL suspension for injection 2023 024 [id number] [facility][id number], [address] [facility], [place], [place], [id number], 4 03:27:57 ropivacaine (PF) 5 mg/mL (0.5 %) injection solution 2023 024 [id number] Not available 4 03:27:58 nitrofurant oin monohydrate /macrocryst als 100 mg capsule 2023 024 [facility] #46496, [address], [place], [place], [id number], 4 08:29:43 metaxalone 800 mg tablet 2023 024 [facility] #13385, [address], [place], [place], [id number], 4 08:29:42 nitrofurant oin macrocrysta l 50 mg capsule 2022 023 [email or web address] [facility] #22284, [address], [place], [place], [id number], 4 16:06:11 fluconazole 150 mg tablet 2022 023 [email or web address] [facility] #88021, [address], [place], [place], [id number], 3 16:45:46 Patient TargetsNo targets recorded. Patient InstructionsNo instructions recorded. Reason for Referral Physical Therapist Referral for Pain of right shoulder joint EVAL AND TREATADDITIONAL DX: NECK PAIN M54.2 Referring Physician: Halley Rausch, Orthopedic Surgery, Encounter Date: 09/20/2023 Results Created Date Observation Date Name Description Value Unit Range Abnormal Flag Note LastModifiedBy Organization Detail LastModifiedTime 11/15/19 23 11/14/2022 urina lysis , dipst ick Color Dark Yellow Not Available [facility] [address], [place], [address], 11/14/2022 13:55:42 11/15/19 23 11/14/2022 urina lysis , dipst ick Appearance Slight ly Cloudy Not Available [address], [place], [address], 11/14/2022 13:55:42 11/15/19 23 11/14/2022 urina lysis , dipst ick Glucose (reference range: negative mg/dl) Negati ve Not Available [address], [place], [address], 11/14/2022 13:55:42 11/15/19 23 11/14/2022 urina lysis , dipst ick Bilirubin (reference range: negative mg/dl) Negati ve Not Available [address], [place], [address], 11/14/2022 13:55:42 11/15/19 23 11/14/2022 urina lysis , dipst ick Ketone (reference range: negative mg/dl) Negati ve Not Available [address], [place], [address], 11/14/2022 13:55:42 11/15/19 23 11/14/2022 urina lysis , dipst ick Specific Pitcher (reference range: 1.005-1.030) 1.020 Not Available [address], [place], [address], 11/14/2022 13:55:42 11/15/19 23 11/14/2022 urina lysis , dipst ick Blood (reference range: negative Wicho/ l) Negati ve Not Available [address], [place], [address], 11/14/2022 13:55:42 11/15/19 23 11/14/2022 urina lysis , dipst ick pH (reference range: 5-7) 7.0 Not Available [address], [place], [address], 11/14/2022 13:55:42 11/15/19 23 11/14/2022 urina lysis , dipst ick Protein (reference range: negative mg/dl) Negati ve Not Available [address], [place], [address], 11/14/2022 13:55:42 11/15/19 23 11/14/2022 urina lysis , dipst ick Urobilinogen (reference range: 0.2-1 mg/dl) 0.2 Not Available [address], [place], [address], 11/14/2022 13:55:42 11/15/19 23 11/14/2022 urina lysis , dipst ick Nitrite (reference rage: negative mg/dl) negati ve Not Available [address], [place], [address], 11/14/2022 13:55:42 11/15/19 23 11/14/2022 urina lysis , dipst ick Leukocytes (reference range: negative oneil/ l) Small Not Available [address], [place], [address], 11/14/2022 13:55:42 04/28/20 23 04/28/2023 CBC/C OMPLE TE BLD COUNT W/DIF F white blood cells 4.7 x10'3 /uL 4.2-10 .8 Not Available [facility] (Lab) [address] [facility], [place], [address], 04/28/2023 11:03:15 04/28/20 23 04/28/2023 CBC/C OMPLE TE BLD COUNT W/DIF F red blood cells 4.89 x10'6 /uL 3.80-5 .20 Not Available [facility] (Lab) [address] [place], [address], 04/28/2023 11:03:15 04/28/20 23 04/28/2023 CBC/C OMPLE TE BLD COUNT W/DIF F hemoglobin 15.3 g/dL 12.0-1 5.6 Not Available [facility] (Lab) [address] [place], [address], 04/28/2023 11:03:15 04/28/20 23 04/28/2023 CBC/C OMPLE TE BLD COUNT W/DIF F hematocrit 45.0 % 35.7-4 5.7 Not Available [facility] (Lab) [address] [place], [address], 04/28/2023 11:03:15 04/28/20 23 04/28/2023 CBC/C OMPLE TE BLD COUNT W/DIF F mean red cell volume 92.0 fL 82.0-9 9.0 Not Available [facility] (Lab) [address] [place], [address], 04/28/2023 11:03:15 04/28/20 23 04/28/2023 CBC/C OMPLE TE BLD COUNT W/DIF F mean red cell hemoglobin 31.3 pg 27.0-3 3.0 Not Available [facility] (Lab) [address] [place], [address], 04/28/2023 11:03:15 04/28/20 23 04/28/2023 CBC/C OMPLE TE BLD COUNT W/DIF F mean RBC HGB concentratio n 34.0 g/dL 31.0-3 6.0 Not Available [facility] (Lab) [address] [place], [address], 04/28/2023 11:03:15 04/28/20 23 04/28/2023 CBC/C OMPLE TE BLD COUNT W/DIF F red cell distribution width 11.9 % 11.8-1 5.5 Not Available [facility] (Lab) [address] [place], [address], 04/28/2023 11:03:15 04/28/20 23 04/28/2023 CBC/C OMPLE TE BLD COUNT W/DIF F platelets 271 x10'3 /uL 150-40 0 Not Available [facility] (Lab) [address] [place], [address], 04/28/2023 11:03:15 04/28/20 23 04/28/2023 CBC/C OMPLE TE BLD COUNT W/DIF F mean platelet volume 12.6 fL 9.0-12 .4 high Not Available [facility] (Lab) [address] [place], [address], 04/28/2023 11:03:15 04/28/20 23 04/28/2023 CBC/C OMPLE TE BLD COUNT W/DIF F neutrophils 57.1 % 39.0-7 2.0 Not Available [facility] (Lab) [address] [place], [address], 04/28/2023 11:03:15 04/28/20 23 04/28/2023 CBC/C OMPLE TE BLD COUNT W/DIF F lymphocytes 29.7 % 16.0-4 7.0 Not Available [facility] (Lab) [address] [place], [address], 04/28/2023 11:03:15 04/28/20 23 04/28/2023 CBC/C OMPLE TE BLD COUNT W/DIF F monocytes 9.5 % 5.0-12 .0 Not Available [facility] (Lab) [address] [place], [address], 04/28/2023 11:03:15 04/28/20 23 04/28/2023 CBC/C OMPLE TE BLD COUNT W/DIF F eosinophils 2.6 % 1.0-7. 0 Not Available [facility] (Lab) [address] [place], [address], 04/28/2023 11:03:15 04/28/20 23 04/28/2023 CBC/C OMPLE TE BLD COUNT W/DIF F basophils 0.9 % 0.0-2. 0 Not Available [facility] (Lab) [address] [place], [address], 04/28/2023 11:03:15 04/28/20 23 04/28/2023 CBC/C OMPLE TE BLD COUNT W/DIF F immature granulocytes 0.2 % 0.00-0 .50 Not Available [facility] (Lab) [address] [place], [address], 04/28/2023 11:03:15 04/28/20 23 04/28/2023 CBC/C OMPLE TE BLD COUNT W/DIF F neutrophils, absolute count 2.66 x10'3 /uL 1.5-8. 0 Not Available [facility] (Lab) [address] [place], [address], 04/28/2023 11:03:15 04/28/20 23 04/28/2023 CBC/C OMPLE TE BLD COUNT W/DIF F lymphocytes, absolute count 1.38 x10'3 /uL 1.07-3 .43 Not Available [facility] (Lab) [address] [place], [address], 04/28/2023 11:03:15 04/28/20 23 04/28/2023 CBC/C OMPLE TE BLD COUNT W/DIF F monocytes, absolute count 0.44 x10'3 /uL 0.29-0 .99 Not Available [facility] (Lab) [address] [place], [address], 04/28/2023 11:03:15 04/28/20 23 04/28/2023 CBC/C OMPLE TE BLD COUNT W/DIF F eosinophils, absolute count 0.12 x10'3 /uL 0.02-0 .53 Not Available [facility] (Lab) [address] [place], [address], 04/28/2023 11:03:15 04/28/20 23 04/28/2023 CBC/C OMPLE TE BLD COUNT W/DIF F basophils, absolute count 0.04 x10'3 /uL 0.01-0 .08 Not Available [facility] (Lab) [address] [place], [address], 04/28/2023 11:03:15 04/28/20 23 04/28/2023 CBC/C OMPLE TE BLD COUNT W/DIF F immature granulocytes ,absolute 0.01 x10'3 /uL 0.00-0 .05 Not Available [facility] (Lab) [address] [place], [address], 04/28/2023 11:03:15 04/28/20 23 04/28/2023 CBC/C OMPLE TE BLD COUNT W/DIF F nucleated red blood cells 0.0 % -0 Not Available [facility] (Lab) [address] [place], [address], 04/28/2023 11:03:15 04/28/20 23 04/28/2023 CBC/C OMPLE TE BLD COUNT W/DIF F NRBC# 0.00 x10'3 /uL Not Available [facility] (Lab) [address] [place], [address], 04/28/2023 11:03:15 04/28/20 23 04/28/2023 IRON/ TIBC PANEL total iron binding capacity 288 mcg/d L 265-47 5 Not Available [facility] (Lab) [address] [place], [address], 04/28/2023 11:49:08 04/28/20 23 04/28/2023 IRON/ TIBC PANEL % transferrin saturation 34 % 20-55 Not Available [facility] (Lab) [address] [place], [address], 04/28/2023 11:49:08 04/28/20 23 04/28/2023 IRON/ TIBC PANEL unsaturated iron bind capacity 189 mcg/d L 126-38 2 Not Available [facility] (Lab) [address] [place], [address], 04/28/2023 11:49:08 04/28/20 23 04/28/2023 IRON/ TIBC PANEL iron 99 mcg/d L 42-175 Not Available [facility] (Lab) [address] [place], [address], 04/28/2023 11:49:08 04/28/2004/28/2023 URINA LYSIS COMPL ETE/I RIS W/RFX color YELLOW Not Available [facility] (Lab) [address] [place], [address], 04/28/2023 11:27:04 04/28/2004/28/2023 URINA LYSIS COMPL ETE/I RIS W/RFX appear CLEAR Not Available [facility] (Lab) [address] [place], [address], 04/28/2023 11:27:04 04/28/2004/28/2023 URINA LYSIS COMPL ETE/I RIS W/RFX specific gravity 1.032 1.001- 1.030 high Not Available [facility] (Lab) [address] [place], [address], 04/28/2023 11:27:04 04/28/20 23 04/28/2023 URINA LYSIS COMPL ETE/I RIS W/RFX pH 5.5 pH_un its 5.0-9. 0 Not Available [facility] (Lab) [address] [place], [address], 04/28/2023 11:27:04 04/28/20 23 04/28/2023 URINA LYSIS COMPL ETE/I RIS W/RFX leukocytes NEGATI VE oneil/u L negati ve- Not Available [facility] (Lab) [address] [place], [address], 04/28/2023 11:27:04 04/28/20 23 04/28/2023 URINA LYSIS COMPL ETE/I RIS W/RFX nitrite NEGATI VE negati ve- Not Available [facility] (Lab) [address] [place], [address], 04/28/2023 11:27:04 04/28/20 23 04/28/2023 URINA LYSIS COMPL ETE/I RIS W/RFX protein 10 mg/dL negati ve- abnormal Not Available [facility] (Lab) [address] [place], [address], 04/28/2023 11:27:04 04/28/20 23 04/28/2023 URINA LYSIS COMPL ETE/I RIS W/RFX glucose NORMAL mg/dL normal - Not Available [facility] (Lab) [address] [place], [address], 04/28/2023 11:27:04 04/28/20 23 04/28/2023 URINA LYSIS COMPL ETE/I RIS W/RFX ketones TRACE mg/dL negati ve- abnormal Not Available [facility] (Lab) [address] [place], [address], 04/28/2023 11:27:04 04/28/20 23 04/28/2023 URINA LYSIS COMPL ETE/I RIS W/RFX urobilinogen NORMAL mg/dL normal - Not Available [facility] (Lab) [address] [place], [address], 04/28/2023 11:27:04 04/28/20 23 04/28/2023 URINA LYSIS COMPL ETE/I RIS W/RFX bilirubin NEGATI VE mg/dL negati ve- Not Available [facility] (Lab) [address] [place], [address], 04/28/2023 11:27:04 04/28/20 23 04/28/2023 URINA LYSIS COMPL ETE/I RIS W/RFX blood 0.03 mg/dL negati ve- abnormal Not Available [facility] (Lab) [address] [place], [address], 04/28/2023 11:27:04 04/28/20 23 04/28/2023 URINA LYSIS COMPL ETE/I RIS W/RFX white blood cells 0-8 /i??h pfi?? 0-8 Not Available [facility] (Lab) [address] [place], [address], 04/28/2023 11:27:04 04/28/20 23 04/28/2023 URINA LYSIS COMPL ETE/I RIS W/RFX red blood cells 0-4 /i??h pfi?? 0-4 Not Available [facility] (Lab) [address] [place], [address], 04/28/2023 11:27:04 04/28/20 23 04/28/2023 URINA LYSIS COMPL ETE/I RIS W/RFX bacteria NONE Not Available [facility] (Lab) [address] [place], [address], 04/28/2023 11:27:04 04/28/20 23 04/28/2023 URINA LYSIS COMPL ETE/I RIS W/RFX mucous FEW /i??l pfi?? abnormal Not Available [facility] (Lab) [address] [place], [address], 04/28/2023 11:27:04 04/28/20 23 04/28/2023 URINA LYSIS COMPL ETE/I RIS W/RFX squamous epithelial OCCASI ONAL /i??l pfi?? abnormal Not Available [facility] (Lab) [address] [place], [address], 04/28/2023 11:27:04 04/28/20 23 04/28/2023 LIPID PANEL cholesterol 215 mg/dL 140-19 9 high NIH FAIZA NSUS RECOM MENDA TION FOR GARIMA STERO L: ADULT CHILD LOW RISK: <200 <170 BORDE RLINE : <200- 239 ----- HIGH RISK: >240 >200 Not Available [facility] (Lab) [address] [place], [address], 04/28/2023 11:48:16 04/28/20 23 04/28/2023 LIPID PANEL triglyceride s 57 mg/dL 0-150 NIH FAIZA NSUS REPOR T RECOM MENDA TION FOR TRIGL YCERI TIFFANY: ADULT CHILD LOW RISK: <150 ----- BODER LINE: 150-1 99 ----- HIGH RISK: >200 ----- Not Available [facility] (Lab) [address] [place], [address], 04/28/2023 11:48:16 04/28/20 23 04/28/2023 LIPID PANEL HDL cholesterol 71 mg/dL 40- Not Available [facility] (Lab) [address] [place], [address], 04/28/2023 11:48:16 04/28/20 23 04/28/2023 LIPID PANEL LDL cholesterol, calculated 133 mg/dL 0-130 high NIH FAIZA NSUS REPOR T RECOM MENDA TIONS FOR LDL: ADULT CHILD LOW RISK <130 <110 (OPTI MAL LDL) <100 ----- BORDE RLINE : 130-1 59 ----- HIGH RISK: >160 >130 A TRIGL YCERI DE RESUL T >400 INVAL IDATE S THE CALCU LATIO N FOR LDL FRACT IONAT ION - THE LDL RESUL T WILL NOT BE REPOR RAMA. Not Available [facility] (Lab) [address] [place], [address], 04/28/2023 11:48:16 04/28/2004/28/2023 BASIC METAB OLIC PANEL sodium 139 mmol/ L 137-14 5 Not Available [facility] (Lab) [address] [place], [address], 04/28/2023 11:48:26 04/28/20 23 04/28/2023 BASIC METAB OLIC PANEL potassium 4.1 mmol/ L 3.5-5. 1 Not Available [facility] (Lab) [address] [place], [address], 04/28/2023 11:48:26 04/28/20 23 04/28/2023 BASIC METAB OLIC PANEL chloride 101 mmol/ L 98-107 Not Available [facility] (Lab) [address] [place], [address], 04/28/2023 11:48:26 04/28/20 23 04/28/2023 BASIC METAB OLIC PANEL carbon dioxide 28 mmol/ L 22-30 Not Available [facility] (Lab) [address] [place], [address], 04/28/2023 11:48:26 04/28/20 23 04/28/2023 BASIC METAB OLIC PANEL anion gap 14.1 mmol/ L 14-22 Not Available [facility] (Lab) [address] [place], [address], 04/28/2023 11:48:26 04/28/20 23 04/28/2023 BASIC METAB OLIC PANEL glucose 75 mg/dL 70-99 Not Available [facility] (Lab) [address], [place], [address], 04/28/2023 11:48:26 04/28/20 23 04/28/2023 BASIC METAB OLIC PANEL BUN 16 mg/dL 8-19 Not Available [facility] (Lab) [address] [place], [address], 04/28/2023 11:48:26 04/28/20 23 04/28/2023 BASIC METAB OLIC PANEL creatinine 0.70 mg/dL 0.66-1 .25 Not Available [facility] (Lab) [address] [facility], [place], [address], 04/28/2023 11:48:26 04/28/20 23 04/28/2023 BASIC METAB OLIC PANEL GFR >60 Refer ence Range : [facility] ge GFR Healt hy Adult : >60 mL/mi n/1.7 3 m2 Chron ic Kidne y Disea se: 15-60 mL/mi n/1.7 3 m2 Kidne y Failu re: <15/m L/min /1.73 m2 www.n iddk. nih.g ov The MDRD study equat ion has not been valid ated in child ramos <18 years of age; pregn ant women ; the elder ly >85 years of age; or in some racia l or ethni c subgr oups, such as [facility] nics. Outsi de the valid ated ji eters , estim ated GFR is less accur ate, requi ring clini rich judgm ent on a case- by-ca se basis . Clini rich inter preta tion for other races and ages must be made by the clini ruht. The MDRD study equat ion has not been valid ated for the evalu ation of serum creat inine relat ed to nutri daryn l statu s or medic ation usage . For perso ns <18 years of age, a pedia tric GFR calcu lator is avail able on the [facility] websi te: https ://leonie w.talia marks.o rg/pr ofess ional s/kdo qi/gf r_cal culat or Not Available [facility] (Lab) [address] [place], [address], 04/28/2023 11:48:26 04/28/20 23 04/28/2023 BASIC METAB OLIC PANEL calcium 9.8 mg/dL 8.4-10 .2 Not Available [facility] (Lab) [address] [place], [address], 04/28/2023 11:48:26 04/28/20 23 04/28/2023 MAGNE SIUM magnesium 2.0 mg/dL 1.6-2. 3 Not Available [facility] (Lab) [address] [place], [address], 04/28/2023 11:48:31 04/28/20 23 04/28/2023 SANDRA TIN ferritin 42 NG/mL 11.1-2 64 Not Available [facility] (Lab) [address] [place], [address], 04/28/2023 15:12:57 04/28/2004/28/2023 TSH thyroid-stim ulating hormone 0.888 uIU/m L 0.465- 4.680 Not Available [facility] (Lab) [address] [place], [address], 04/28/2023 11:57:38 04/28/2004/28/2023 HEMOG LOBIN A1C HA1C 4.6 % 4.0-6. 0 Diabe roz Scree odilon Crite lara: <5.7% Consi stent with absen ce of diabe roz 5.7-6 .4% Consi stent with incre ased risk for diabe roz (pred iabet es) >OR=6 .5% Consi stent with diabe roz REFER ENCE: Diabe roz Care 2016, 39(Echols ppl.1 ):s13 -s22 Not Available [facility] (Lab) [address] [place], [address], 04/28/2023 12:34:54 04/28/20 23 04/28/2023 VITAM IN D 25-HY DROXY vd25oh 66.5 NG/mL 30-100 Vitam in D Statu s: Defic ient: <20 ng/mL Insuf ficie nt: 20-29 ng/mL Suffi cient : 30-10 0 ng/mL Not Available [facility] (Lab) [address] [place], [address], 04/28/2023 12:54:36 04/28/20 23 04/28/2023 VITAM IN B12 (TREVOR SCARLET ) vb12 573 pg/mL 239-93 1 Not Available [facility] (Lab) [address] [place], [address], 04/28/2023 13:15:25 10/18/19 23 10/14/2022 MAMMO , scree odilon, digit al, bilat eral No observ ation record ed. [email or web address] [address], [place], [address], 10/17/2022 14:33:47 09/20/19 24 XR, shoul radha No observ ation record ed. [email or web address] [facility] [place] [address] [facility] [address], [place], [address], 09/22/2023 12:59:20 08/29/19 25 08/28/2024 imagi ng/di agnos tic resul t No observ ation record ed. [facility] [address] [facility] [address], [place], [address], 08/28/2024 17:13:33 Result Notes None recorded. Problems Name Problem SNOMED Code Status Onset Date Resolution Date Notes Provider Name and Address Organization Details Recorded Time Edema 283633094 Active Not Available [facility] 3 06:44:53 Obesity 427618806 Active Not Available [facility] 3 06:44:53 Upper respirator y infection 32250179 Active Not Available [facility] 3 06:44:54 Fatigue 88942606 Active Not Available [facility] 3 06:44:54 Recurrent urinary tract infection 915020892 Active 2022 ZURDO Mathews [address], [place], [address] , [employer] 3 13:55:40 Hypertensi ve disorder 18512042 Active 2022 ZURDO Mathews [address], [address], [place], [address] , [employer] 3 15:33:23 Weight gain 4328218 Active 2022 Meera Lutz MD [address], [address], [place], [address] , [employer] 3 16:42:08 Pain of right shoulder joint 0486263444947 9100 Active 2023 Meera Lutz MD [address], [address], [place], [address] , [employer] 4 13:31:35 Neck pain 84344177 Active 2023 Cami nance, [employer] [facility] 4 16:42:15 Acute sinusitis 46994072 Active 2023 NILSA Torres [address], [place], [address] , [employer] [facility] 4 14:26:49 Cough [id number] Active 2023 NILSA Torres [address], [address], [place], [address] , [employer] [facility] 4 14:27:05 Acute upper respirator y infection [id number] Active 2023 NILSA Rodriguez [address], [address], [place], [address] , [employer] [facility] [employer] 14:12:10 Problem Notes None recorded. Procedures Surgical History Date Name Laterality Status Provider Name and Address Organization Details Recorded Time 11/27/19 24 Ortho - Cortisone Injection completed Luis Fernando Swift MD [address] [facility], [facility] [address], [place], [address], [email or web address] 11/27/2023 10:01:41 01/13/20 21 abdominoplasty completed Not Available [facility] 08/10/2022 06:40:03 01/13/20 21 thigh reduction completed Not Available [facility] 08/10/2022 06:40:03 01/13/20 21 abdominoplasty completed Not Available [facility] 08/10/2022 06:40:03 06/12/19 14 Ablation completed Not Available [facility] 08/10/2022 06:40:03 Imaging Results Imaging Date Name Status LastModified by Organiz ation Details LastModified Time 10/14/2022 MAMMO, screening, digital, bilateral completed [email or web address] [address], [address], 10/17/2022 14:33:47 09/20/2023 XR, shoulder completed [email or web address] [facility] [place] [address] [facility] [address], [place], [address], 09/22/2023 12:59:20 08/28/2024 imaging/diagno stic result active [address], [address], 08/28/2024 17:13:33 Procedure Notes None recorded. Medical Equipment None Reported. Allergies No known drug allergies Medications Name Sig Start Date Stop Date Status Note LastModified by Organization Details LastModified Time carisoprodo l 350 mg tablet TAKE 1 TABLET BY MOUTH THREE TIMES DAILY NEEDED FOR MUSCLE PAIN 02/18 completed Not Available Not Available Not Available neomycin-po lymyxin-hyd rocort 3.5 mg/mL-10,00 0 unit/mL-1 % ear solution INSTILL 4 DROPS INTO AFFECTED EAR(S) BY OTIC ROUTE 3 TIMES PER DAY x 7 days active Not Available Not Available No t Available nitrofurant oin macrocrysta l 50 mg capsule TAKE 1 CAPSULE BY MOUTH EVERY DAY 09/19 completed Not Available Not Available Not Available clindamycin HCl 300 mg capsule Take 1 capsule every 6 hours by oral route for 7 days. active Not Available Not Available No t Available triamcinolo ne acetonide 0.5 % topical cream APPLY TOPICALLY TO THE AFFECTED AREA TWICE DAILY NEEDED 11/14 completed Not Available Not Available Not Available azithromyci n 250 mg tablet TAKE 2 TABLETS (500 MG) BY ORAL ROUTE ONCE DAILY FOR 1 DAY THEN 1 TABLET (250 MG) BY ORAL ROUTE ONCE DAILY FOR 4 DAYS active Not Available Not Available No t Available ibuprofen 800 mg tablet TAKE 1 TABLET BY MOUTH EVERY 8 HOURS NEEDED FOR PAIN active Not Available Not Available No t Available ofloxacin 0.3 % eye drops 11/14 completed Not Available Not Available Not Available fluconazole 150 mg tablet TAKE 1 TABLET BY MOUTH FOR 1 DOSE DIRECTED. TAKE SECOND TABLET IN 72 HOURS IF NEEDED 04/26 completed Not Available Not Available Not Available phenazopyri dine 200 mg tablet TAKE 1 TABLET BY MOUTH THREE TIMES DAILY NEEDED FOR PAIN 04/25 completed Not Available Not Available Not Available ondansetron HCl 4 mg tablet TAKE 1 TABLET BY MOUTH EVERY 8 HOURS 02/18 completed Not Available Not Available Not Available valacyclovi r 500 mg tablet TAKE 1 TABLET DAILY active Not Available Not Available No t Available ciprofloxac in 500 mg tablet TAKE 1 TABLET BY MOUTH TWICE DAILY 04/26 completed Not Available Not Available Not Available sulfamethox azole 800 mg-trimetho prim 160 mg tablet TAKE 1 TABLET BY MOUTH EVERY 12 HOURS FOR 3 DAYS 09/19 completed Not Available Not Available Not Available tramadol 50 mg tablet TAKE 1 TO 2 TABLETS BY MOUTH EVERY 6 HOURS NEEDED FOR POST OPERATIVE PAIN 11/14 completed Not Available Not Available Not Available oxycodone-a cetaminophe n 5 mg-325 mg tablet TAKE 1 TABLET BY MOUTH EVERY 6 HOURS NEEDED FOR PAIN 02/18 completed Not Available Not Available Not Available hydromorpho ne 2 mg tablet TAKE 1 TABLET BY MOUTH THREE TIMES DAILY NEEDED DURING PROCEDURE DIRECTED 11/14 completed Not Available Not Available Not Available Denavir 1 % topical cream 05/20 completed Not Available Not Available Not Available Kenalog 10 mg/mL suspension for injection Take 1 mL by injection route. [address] [facility]: [phone] Not Available Not Available Not Available lorazepam 2 mg tablet 11/14 completed Not Available Not Available Not Available benzonatate 100 mg capsule 08/01 completed Not Available Not Available Not Available cephalexin 500 mg capsule TAKE 1 CAPSULE BY MOUTH EVERY 8 HOURS active Not Available Not Available No t Available cyanocobala min (vit B-12) 1,000 mcg/mL injection solution monthly 02/18 completed Not Available Not Available Not Available docusate sodium 100 mg capsule TAKE ONE CAPSULE BY MOUTH DAILY 02/18 completed Not Available Not Available Not Available triamterene 37.5 mg-hydrochl orothiazide 25 mg tablet TAKE 1 TABLET DAILY DURING MENSES 11/14 completed Not Available Not Available Not Available cephalexin 500 mg tablet TAKE 1 TABLET BY MOUTH TWICE DAILY FOR 10 DAYS 04/26 completed Not Available Not Available Not Available ibuprofen 600 mg tablet TAKE 1 TABLET BY MOUTH THREE TIMES DAILY NEEDED FOR PAIN 11/14 completed Not Available Not Available Not Available ondansetron 4 mg disintegrat ing tablet DISSOLVE 1 TABLET ON THE TONGUE EVERY 4 HOURS NEEDED FOR NAUSEA 11/14 completed Not Available Not Available Not Available fluticasone propionate 50 mcg/actuati on nasal spray,suspe nsion 08/01 completed Not Available Not Available Not Available clotrimazol e 1 % topical cream APPLY TOPICALLY TO THE AFFECTED AREA TWICE DAILY FOR 14 DAYS 11/14 completed Not Available Not Available Not Available metaxalone 800 mg tablet TAKE 1 TABLET BY MOUTH THREE TIMES DAILY NEEDED active Not Available Not Available No t Available cyclobenzap rine 5 mg tablet TAKE 1 TABLET BY MOUTH THREE TIMES DAILY DIRECTED 10/04 completed Not Available Not Available Not Available Zovirax 5 % topical cream 05/20 completed Not Available Not Available Not Available nitrofurant oin monohydrate /macrocryst als 100 mg capsule Tk 1 c po daily active Not Available Not Available No t Available hydrochloro thiazide 12.5 mg tablet TAKE 1 TABLET DAILY 11/14 completed Not Available Not Available Not Available estradiol-n orethindron e acet 0.5 mg-0.1 mg tablet TK 1 T PO QD 09/19 completed Not Available Not Available Not Available ropivacaine (PF) 5 mg/mL (0.5 %) injection solution Take 4 mL by injection route. [address] [facility] [phone] Not Available Not Available Not Available Mounjaro 7.5 mg/0.5 mL subcutaneou s pen injector INJECT 1 PEN SUBCUTANE OUSLY ONCE WEEKLY 09/19 completed Not Available Not Available Not Available Mounjaro 10 mg/0.5 mL subcutaneou s pen injector INJECT 10 MG SUBCUTANE OUSLY ONCE WEEKLY 11/14 completed Not Available Not Available Not Available Zepbound 5 mg/0.5 mL subcutaneou s pen injector INJECT 5MG SUBCUNTAN EOUSLY WEEKLY (SAME DAY EACH WEEK) active Not Available Not Available No t Available Vitals Date Recorded Body height Body mass index (BMI) Body weight Body temperature Heart rate Oxygen saturation Oxygen saturation in Arterial blood by Pulse oximetry Systolic blood pressure Diastolic blood pressure Provider Name and Address Organization Details Last Updated DateTime 3 167.64 cm 25.2 kg/m2 38621.4 1 g 97.2 [degF] 82 /min 97 % 97 % 116 mm[Hg] 78 mm[Hg] Elizabeth Maldonado RN [email or web address] 15:19:31 Date Recorded Body height Body mass index (BMI) Body weight Body temperature Heart rate Oxygen saturation Oxygen saturation in Arterial blood by Pulse oximetry Systolic blood pressure Diastolic blood pressure Provider Name and Address Organization Details Last Updated DateTime 3 167.64 cm 25.8 kg/m2 87718.7 8 g 98.1 [degF] 97 /min 97 % 97 % 118 mm[Hg] 76 mm[Hg] Elizabeth Maldonado RN [email or web address] 3 16:34:44 Date Recorded Body height Body mass index (BMI) Body weight Provider Name and Address Organization Details Last Updated DateTime 09/20/2023 167.64 cm 25.8 kg/m2 61126.78 g MARCOS Polk [facility] [employer] [facility] 09/20/2023 16:03:54 Date Recorded Body height Body mass index (BMI) Body weight Body temperature Heart rate Oxygen saturation Oxygen saturation in Arterial blood by Pulse oximetry Systolic blood pressure Diastolic blood pressure Provider Name and Address Organization Details Last Updated DateTime 4 167.64 cm 26.3 kg/m2 07274.5 6 g 98.4 [degF] 67 /min 99 % 99 % 118 mm[Hg] 86 mm[Hg] Cheli Lr RN [facility] [employer] [facility] 4 08:05:45 Date Recorded Body height Body mass index (BMI) Body weight Pain severity - 0-10 verbal numeric rating [Score] - Reported Provider Name and Address Organization Details Last Updated DateTime 11/27/2023 167.64 cm 25.8 kg/m2 82614.78 g 4 Fernanda Figueroa Nathen [email or web address] 11/27/2023 09:34:50 Social History Question Answer Notes LastModified by Organizat ion Details LastModified Time Tobacco Smoking Status Never Smoker Not Available [employer] 08/10/2022 06:39:20 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 04/26/2023 [email or web address] Information not available 04/26/2023 Sex: Unknown Functional Status None recorded. Mental Status None recorded. Family History Relationship Description Onset Age of this Age Resolved Age Notes LastModified by Organization Details LastModified Time Father Heart disease [id number] [id number] Not available 08/10/2022 06:40:04 Maternal Grandfather Heart disease [id number] Not available 08/10/2022 06:40:04 Paternal Grandfather Heart disease [id number] [id number] Not available 08/10/2022 06:40:04 Mother Family history of stroke [email or web address] Not available 2023 16:04:39 Notes:No breast, no colon, n o ovary cancer Medical History No medical history recorded. Gynecological HistoryNo gynecological history recorded. Obstetrics History GPAL:G 0 P 0 0 0 0 Immunizations Vaccine Type Date Status Note Provider Nam e and Address Organization Details Recorded Time Influenza, MDCK, quadrivalent, PF 3 completed Elizabeth Maldonado RN [facility], [facility] [employer] [facility] 03/22/2023 09:43:09 Influenza, split virus, quadrivalent, preservative 2 completed Not Available [facility] 08/10/2022 06:52:35 Influenza, split virus, quadrivalent, PF 1 completed Not Available [facility] 08/10/2022 06:52:36 Influenza, split virus, quadrivalent, PF 8 completed Not Available [facility] 08/10/2022 06:52:36 Tdap 8 completed Not Available [facility] 08/10/2022 06:52:36 Past Encounters Encounter ID Performer Location Encounter Start Date Encounter Closed Date Diagnosis/Indication Diagnosis SNOMED-CT Code Diagnosis ICD10 Code Diagnosis Note [id number] [address] [place] [address] 02/18/2021 00:00:00 03/04/2021 14:19:[id number] [place] [address] 04/25/2022 00:00:00 04/26/2022 07:59:22 [id number] ZURDO Mathews [address] [place] [address] 11/14/2022 15:12:08 11/14/2022 15:39:08 Recurrent urinary tract infection 248043190 N39.0 She denies any current symptoms, but has had to be treated twice. Finished last dose of bactrim this AM. Recheck urine to make sure it has cleared. Candidiasis of vagina 72 986714 B37.31 Hypertensive disorder 38 025945 I10 Will d/c HCTZ. Continue to monitor blood pressure. Dietary porfirio dean surveillance 493656674 Z71.3 Has done very well with weight loss.Took last dose of mounjaro 2 weeks ago, will try to maintain weight loss with just weight watchers program/li festyle. [id number] Meera Lutz MD [facility] Primary [facility] [address] [place] [address] 04/26/2023 16:26:34 04/27/2023 17:23:04 Adult health examination 493286464 Z00.00 Z13.220 Z13.1 cologuard repeat 2023mammog kelly done aps with Dr. Brianna Farias fasting labsrecomm end covid booster, recommend shingles vaccinehas gotten flu vaccine History of bariatric surgical procedure 104275054 Z98.84 Weight gain 9288098 R63. 5 Renewal of prescription 034214032 Z76.0 will try nitrofuran toin for prevention 50 mg daily while taking moujaro Recurrent urinary tract infection 246900626 N39.0 repeat UA with next lab draw [id number] Halley Rausch NP [facility] [place] 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, notes aggravatio n of shoulder while performing care-ROM and strength are intact-con tinue with care per Pain of ri ght shoulder joint 8595281638 9907517 M25.511 -notes 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-has been going to chiropract or with some improvemen t-f/u with orthopedis t already, xray completed- no abnormalit y, was given referral to PT-pain rated at 4-5/10-ROM and strength are limited to pain-has tried use of massage-sh e already has muscle relaxers to use, flexeril but she is concerned for the drowsiness with work-trial metaxalone Recurrent urinary tract infection 831477883 N39.0 -recurrent UTI while on mounjaro-m acrobid worked well for her in the past-refil l nitro given [id number] Luis Fernando Swift MD [facility] [place] [address] [place] [address] 11/27/2023 09:31:08 11/27/2023 10:03:17 Pain of right shoulder joint 2283387122 0625323 M25.511 Health Concerns Section Related Observation LastModified by Organization Detai ls LastModified Time None Recorded Concern Status LastModified by Organization Details LastModified Time None Recorded Advance Directives Directive None Recorded Payers Encounter Date Sequence Insurance Name Policy Number Policy Ceballos Covered Member ID Ceballos Member ID Guarantor Name 11/14/2022 1 [place] [id number] Stewart Ortegalers [id number] Stacy Ortegalers 04/26/2023 1 [place] [id number] Stewart Moi [id number] Stacy Ortegalers 09/20/2023 1 [place] [id number] Stewart Moi [id number] Stacy Moi 10/05/2023 1 [place] [id number] Stewart Moi [id number] Stacy Moi 11/27/2023 1 [place] [id number] Stewart Moi [id number] Stacy Ortegalers Notes Date Note Type Note Provider Name and Address Organization Details Recorded Time 11/14/2022 text/html Pt. states she has had recurring UTIs. Most recently had symptoms again on 11/04, went to UC and was treated with a 10 day course of Bactrim, just finished last dose this morning. She states the symptoms have improved. She is also concerned she has a yeast infection. ZURDO Mathews [address], [place], [address], [employer] 11/14/2022 15:43:54 04/26/2023 text/html here for wellness exam Meera Lutz MD [address], [place], [address], [employer] 05/10/2023 10:28:57 10/05/2023 text/html pt is here for neck and shoulder pain Hemant Molina, [employer] [address] [facility], [facility] [address], [place], [address], [place] [facility] 10/05/2023 08:29:52 OBGyn Episode No OBEpisode recorded.
--- OUTSIDE RECORDS SUMMARY | 2024-08-28 17:02 | XMS_ITS | Clinical Summary ---
Author Organization [facility] Address [address] [facility] [place] [address] Care Team Providers Care Plasterer Spot Name Role Phone Silke Mulligan MD Primary Care Provider Source Comments [facility],non-owned Affiliates and Associated Physician Practices is amultiple site organization consisting of ambulatory clinics and hospital sitesin [place], [place], [place] and [place]. This disclosure is being madepursuant to the Care Everywhere program and may not contain all information available regarding this patient. Last updated 18.[facility] Allergies No known active allergies Medications * Be aware that medications may not be up to date on this document. Alwaysverify current medications with the patient. Medication Sig Dispensed Refills Start Date End Date Status ValACYclovir HCl (VALTREX PO) Active HYDROCHLOROTHIAZIDE PO Active fluticasone propionate (FLONASE) 50 MCG/ACT nasal spray Monrovia 2 sprays into each nostril once daily 1 bottles 05/01/2017 Active Active Problems Problem Noted Date Diagnosed Date Morbid obesity 06/22/2009 Social History Tobacco Use Types Packs/Day Years Used Date Smoking Tobacco: Never Smokeless Tobacco: Never Sex and Gender Information Value Date Recorded Sex Assigned at Not on file Gender Identity Not on file Sexual Orientation Not on file Last Filed Vital Signs Vital Sign Reading Time Taken Comments Blood Pressure 112/68 05/01/2017 11:51 AM [employer] Pulse 68 05/01/2017 11:51 AM [employer] Temperature 37.2 C (99 F) 05/01/2017 11:51 AM [employer] Respiratory Rate 16 05/01/2017 11:51 AM [employer] Oxygen Saturation 97% 05/01/2017 11:51 AM [employer] Inhaled Oxygen Concentration - - Weight 79.4 kg (175 lb) 05/01/2017 11:51 AM [employer] Height 167.6 cm (5' 6 ) 05/01/2017 11:51 AM [employer] Body Mass Index 28.25 05/01/2017 11:51 AM [employer] Plan of Treatment Health Maintenance Due Date Last Done Comments COLOGUARD (AGES 45-75) - COLON CA SCREENING 1970 COLON MONITORING 1970 COLONOSCOPY - COLON CA SCREENING 1970 CT COLONOGRAPHY - COLON CA SCREENING 1970 Colorectal Cancer Screening 1970 FIT - COLON CA SCREENING 1970 FLEX SIG - COLON CA SCREENING 1970 MAMMOGRAM 1970 PAP SMEAR 1970 HIV SCREENING 1985 HEPATITIS C SCREENING 12/10/1988 DTAP/TDAP/TD VACCINES (1 - Tdap) 1989 HEPATITIS B VACCINE (1 of 3 - 19+ 3-dose series) 1989 LIPID TESTING 08/27/2013 08/27/2008 SCREENING FOR DIABETES 05/01/2017 9, 08/30/2008, 08/29/2008, Additional history exists PNEUMOCOCCAL VACCINE 50+ (1 of 1 - PCV) 2020 ZOSTER VACCINE (1 of 2) 2020 COVID-19 VACCINE (1 - 2023-25 season) 2024 INFLUENZA VACCINE (#1) 2024 DEPRESSION SCREENING 06/12/2024 HIB VACCINE Aged Out No longer eligi ble based on patient's age to complete this topic HPV VACCINE Aged Out No longer eligi ble based on patient's age to complete this topic MENINGOCOCCAL (Group B) VACCINE SHARED DECISION-MAKING Aged Out No longer eligible based on patient's age to complete this topic MENINGOCOCCAL GROUPS A/C/Y/W VACCINE Aged Out No longer eligible based on patient's age to complete this topic PNEUMOCOCCAL VACCINE Aged Out No long er eligible based on patient's age to complete this topic Procedures Procedure Name Priority Date/Time Associated Diagnosis Comments BASIC METABOLIC PANEL (CALCIUM TOTAL) Routine 08/30/2008 3:00 AM CDT Morbid Obesity LIPID PROFILE Routine 08/27/2008 4:23 PM CDT Morbid Obesity from Last 3 Months or Most Recently Relevant to Health Maintenance Results * (ABNORMAL) BASIC METABOLIC PANEL (CALCIUM TOTAL) (08/30/2008 3:00 AM CDT) BUN 7 7.0 - 17.0 mg/dl [facility] Sodium 135(L) 137 - 145 mEq/L [facility] Potassium 4.3(DE) 3.6 - 5.0 mEq/L [facility] Chloride 104 98.0 - 107.0 mEq/L [facility] CO2 22 22.0 - 30.0 mEq/L [facility] Anion Gap 9.2 [facility] Glucose 170(H) 75 - 110 mg/dl [facility] Creatinine 0.7 0.7 - 1.2 mg/dl [facility] Calcium 8.9(DE) 8.4 - 10.2 mg/dl [facility] eGFR by MDRD 100.1 ml/min/1.7 3m2 [facility] BLOOD SPECIMEN / Unknown 08/30/2008 3:00 AM CDT Ron De La Cruz MD LAB - CHEMISTRY O RDERABLES [facility] [address] [place] [address] * LIPID PROFILE (08/27/2008 4:23 PM CDT) Cholesterol 148 120.0 - 200.0 mg/dl [facility] Triglycerides 91 0.0 - 250.0 mg/dl [facility] HDL Cholesterol 52 >40 mg/dl [facility] LDL Calculated 77.8 mg/dl [facility] Chol HDL Ratio 2.8 [facility] Comment Lipid [facility] Comment: Risk Classification HDL CHOL LDL CHOL TOTAL CHOL According to NCEP (mg/dl) (mg/dL) (mg/dl) Desirable >40 <130 < 200 Borderline/High - 130-159 200-239 High - >159 > 239 The total cholesterol to HDL cholesterol ratio may be used to predict risk for coronary heart disease in untreated patients according to data reported from the [place] Study by Kevin Brady M.D. The predictive value in patients over 60 years of age is uncertain. Risk TOTAL CHOL/HDL RATIO MEN WOMEN 1/2 Average 3.43 3.27 Average 4.97 4.44 2X Average 9.55 7.05 3X Average 23.39 11.04 In Coronary Artery Disease patients, in whom nonpharmacological therapy has failed, the AHA recommends that drug therapy should be prescribed to lower LDL cholesterol to <100mg/dL. Drug therapy may be instituted in patients with HDL <35mg/dL. The reported LDL is a calculated result. For a more precise measurement, a direct LDL test is available, as necessary. BLOOD SPECIMEN / Unknown 08/27/2008 4:23 PM CDT Narrative [facility] - 08/27/2008 5:09 PM CDT FAX [phone] Ron De La Cruz MD LAB - CHEMISTRY O RDERABLES [facility] [address] [place] [address] from Last 3 Months or Most Recently Relevant to Health Maintenance Care Teams Plasterer Spot Relationship Specialty Start Date End Date Silke Mulligan MD [address] [place] [address] [address] [place] [address] PCP - General 09/21/10
--- OUTSIDE RECORDS SUMMARY | 2024-08-28 17:02 | XMS_ITS | Encounter Summary ---
Author Organization [facility] Address [address] [place] [address] Care Team Providers Care Assembling Machine Operator Name Role Phone Pcp, Unknown Primary Care Provider Estefanía e Silke Mulligan MD Primary Care Provider + [phone] Silke Mulligan MD Primary Care Provider + [phone] Reason for Visit * Reason Onset Date Comments Appointment 08/17/2009 Pt no call/no sh ow for physician office visit this date, will contact patient to reschedule. Encounter Details Date Type Department Care Team (Late st Contact Info) Description 08/17/2009 Telephone [facility] [address] [place] [address] [place] [address] [facility] [address] [place] [address] Appointment (Pt no call/no show for physician office visit this date, will contact patient to reschedule.) Social History Tobacco Use Types Packs/Day Years Used Date Smoking Tobacco: Never Assessed Sex and Gender Information Value Date Recorded Sex Assigned at Not on file Gender Identity Not on file Sexual Orientation Not on file documented as of this encounter Plan of Treatment Not on file documented as of this encounter Visit Diagnoses Not on filedocumented in this encounter Care Teams Assembling Machine Operator Relationship Specialty Start Date End Date Pcp, [place] [address] PCP - General 11/30/09 Silke Mulligan MD [address] [place] [address] [address] [place] [id number] PCP - General 08/20/08 11/29/09 Silke Mulligan MD [address] [place] [address] PCP - General 09/21/10 documented as of this encounter
== END 2024-08-28 15:20 | disposition home or self-care (01) ==
LOC: ANHIMG 15:39
PROVIDERS: PCP Family Medicine; Visit Provider Obstetrics & Gynecology
DX: Z12.31 Encounter for screening mammogram for malignant neoplasm of breast (principal)
CPT/HCPCS: 77063; 77067

== ENCOUNTER 2024-09-19 00:32 | Day surgery (SDC) | payer BC, SELFPAY ==
[2024-09-11 09:37] VITALS: BMI 26.6
--- NOTE | 2024-09-18 16:51 | WPDANESEPPF ---
Anes - Initial Pre Proc Eval Procedure: Operation Date: 09/19/24 09:30 Proposed Procedures p Screening Colonoscopy - Jareth Cheek DO Date/Time: 09/18/24 16:51 Surgeon: Jareth Cheek DO Pre Op Diagnosis: screening malignant neoplasm of colon Patient Data Age: 53 Gender: F Height: 1.68 m Weight: 75 kg Allergies Allergy/AdvReac Type Severity Reaction Status Date / Time No Known Allergies Allergy Unknown Verified 09/19/24 08:04 Home Medications ?Medication ?Instructions ?Recorded ?Confirmed ?Type valacyclovir 500 mg tablet 500 mg PO DAILY 01/05/21 09/19/24 History Patient hx anesthesia problems: none Family hx anesthesia problems: none Results Review: All pre-operative results and documents have been reviewed as part of the pre-operative evaluation. [facility] Past Medical History Medical History Kidney stones Overweight Patient denies significant medical history Surgical History Surgical History H/O eye surgery H/O mastopexy Hx of cosmetic surgery LAP-BAND surgery status Social History Social History Smoking status: Never smoker Alcohol intake: never Substance use: never Substance use type: does not use Living arrangements: with family Gender identity (if verbalized by the patient): Female Sexual Orientation (if Verbalized by the Patient): Straight or Heterosexual Spiritual care concerns: No Anes - Eval Final PreProcedure Day of Procedure 09/18/24 16:51 Patient weight: overweight Heart: regular rate and rhythm Lungs: clear to auscultation Airway: Mallampati scale class II Neurological: alert and oriented Last oral intake: >/= 8 hours ASA classification: II Emergent: no Anesthetic plan: proceed Anesthesia type and monitoring: general GIVS and standard monitoring Results Review: All pre-operative results and documents have been reviewed as part of the pre-operative evaluation. Informed Consent: The patient's anesthetic plan and its attendant risks and benefits were discussed with the patient/family/POA. Questions were solicited and answers provided to the satisfaction of the patient/family/POA.
--- OUTSIDE RECORDS SUMMARY | 2024-09-19 00:35 | XMS_ITS | Clinical Summary ---
Author Organization [facility] Address [address] [place] [address] Care Team Providers Care Credit Operations Processor Name Role Phone Unavailable Primary Care Provider [...] Comments Hepatitis C Virus (HCV) Screening 1970 Hepatitis B Immunization (1 of 3 - 19+ 3-dose series) 1989 Colonoscopy 12/16/2015 Colorectal Cancer Screening 12/16/2015 Cologuard [...]
--- OUTSIDE RECORDS SUMMARY | 2024-09-19 00:35 | XMS_ITS | Clinical Summary ---
Author Organization [facility] Address [address] [place] [address] Care Team Providers Care Application Packager Name Role Phone Silke Mulligan MD Primary Care Provider [phone] Source Comments [facility],non-owned Affiliates and Associated Physician Practices is amultiple site organization consisting of ambulatory clinics and hospital sitesin [place], [place], [place] and [place]. This disclosure is being madepursuant to the Care Everywhere program and may not contain all information available regarding this patient. Last updated 18.[facility] Allergies No known active allergies Medications * Be aware that medications may not be up to date on this document. Alwaysverify current medications with the patient. Medication Sig Dispensed Refills Start Date End Date Status ValACYclovir HCl (VALTREX PO) Active HYDROCHLOROTHIAZIDE PO Active fluticasone propionate (FLONASE) 50 MCG/ACT nasal spray [place] 2 sprays into each nostril once daily [...] Comments Blood Pressure 112/68 05/01/2017 11:51 AM ELECTRICAL TEST TECHNICIAN Pulse 68 05/01/2017 11:51 AM ELECTRICAL TEST TECHNICIAN Temperature 37.2 C (99 F) 05/01/2017 11:51 AM ELECTRICAL TEST TECHNICIAN Respiratory Rate 16 05/01/2017 11:51 AM ELECTRICAL TEST TECHNICIAN Oxygen Saturation 97% 05/01/2017 11:51 AM ELECTRICAL TEST TECHNICIAN Inhaled Oxygen Concentration - - Weight 79.4 kg (175 lb) 05/01/2017 11:51 AM ELECTRICAL TEST TECHNICIAN Height 167.6 cm (5' 6 ) 05/01/2017 11:51 AM ELECTRICAL TEST TECHNICIAN Body Mass Index 28.25 05/01/2017 11:51 AM ELECTRICAL TEST TECHNICIAN Plan of Treatment Health Maintenance Due Date [...] of 2) 2020 COVID-19 VACCINE (1 - 2023- season) 2024 DEPRESSION SCREENING 06/12/2024 INFLUENZA VACCINE (Season Ended) 2025 HIB VACCINE Aged Out No longer eligi [...] CDT) BUN 7 7.0 - 17.0 mg/dl [facility] Sodium 135(L) 137 - 145 mEq/L [facility] Potassium 4.3(DE) 3.6 - 5.0 mEq/L [facility] Chloride 104 98.0 - 107.0 mEq/L [facility] CO2 22 22.0 - 30.0 mEq/L [facility] Anion Gap 9.2 [facility] Glucose 170(H) 75 - 110 mg/dl [facility] Creatinine 0.7 0.7 - 1.2 mg/dl [facility] Calcium 8.9(DE) 8.4 - 10.2 mg/dl [facility] eGFR by MDRD 100.1 ml/min/1.7 3m2 [facility] BLOOD SPECIMEN / Unknown 08/30/2008 3:00 AM CDT Ron De La Cruz MD LAB - CHEMISTRY O RDERABLES [facility] [address] [place] [address] * LIPID PROFILE (08/27/2008 4:23 PM CDT) Cholesterol 148 120.0 - 200.0 mg/dl [facility] Triglycerides 91 0.0 - 250.0 mg/dl [facility] HDL Cholesterol 52 >40 mg/dl [facility] LDL Calculated 77.8 mg/dl [facility] Chol HDL Ratio 2.8 [facility] Comment Lipid [facility] Comment: Risk Classification HDL CHOL LDL CHOL TOTAL CHOL According to NCEP (mg/dl) (mg/dL) (mg/dl) Desirable >40 <130 < 200 Borderline/High - 130-159 200-239 High - >159 > 239 The total cholesterol to HDL cholesterol ratio may be used to predict risk for coronary heart disease in untreated patients according to data reported from the [place] Study by Kevin Brady M.D. The predictive [...] / Unknown 08/27/2008 4:23 PM CDT Narrative [facility] - 08/27/2008 5:09 PM CDT FAX [phone] Ron De La Cruz MD LAB - CHEMISTRY O RDERABLES [facility] [address] [place] [address] from Last 3 Months or Most Recently Relevant to Health Maintenance Care Teams Application Packager Relationship Specialty Start Date End Date Silke Mulligan MD [address] [place] [address] [address] [place] [address] PCP - General 09/21/10
--- OUTSIDE RECORDS SUMMARY | 2024-09-19 00:35 | XMS_ITS | Encounter Summary ---
Author Organization [facility] Address [address] [place] [address] Care Team Providers Care Maintenance Trainer Name Role Phone Pcp, Unknown Primary Care Provider Estefanía e Silke Mulligan MD Primary Care Provider [phone] Silke Mulligan MD Primary Care Provider [phone] Reason for Visit * Reason Onset Date Comments Appointment 08/17/2009 Pt no call/no sh ow for physician office visit this date, will contact patient to reschedule. Encounter Details Date Type Department Care Team (Late st Contact Info) Description 08/17/2009 Telephone [facility] [address] [place] [address] [place] [address] [facility] [address] [place] [address] Appointment (Pt no call/no show [...] on filedocumented in this encounter Care Teams Maintenance Trainer Relationship Specialty Start Date End Date Pcp, [place] [address] PCP - General 11/30/09 Silke Mulligan MD [address] [place] [address] [address] [place] [phone] PCP - General 08/20/08 11/29/09 Silke Mulligan MD [address] [place] [phone] PCP - General 09/21/10 documented as of this encounter
[2024-09-19 08:05] VITALS: BP 113/77; PULSE 70; RESP 18; TEMP 36.5; O2SAT 99
[2024-09-19] MEDS: LACTATED RINGERS 1,000 ML 150 ML IV CONT (08:18)
--- NOTE | 2024-09-19 08:30 | P.HP_ITS ---
H&P: HPI History of Present Illness Date/Time: 09/19/24 08:30 Chief Complaint: Screening for colorectal cancer Narrative: This is a 53-year-old woman who presents for colonoscopy. She has never had a colonoscopy before. She denies any family history of colon cancer. She denies any hematochezia. Review of Systems Review of Systems: All systems reviewed & are unremarkable except as noted in HPI and below Constitutional: Constitutional: Denies chills, Denies fever(s), Denies headache(s) and Denies weight loss Eyes: Eyes: Denies change in vision ENT: Denies dizziness, Denies headache(s), Denies neck mass and Denies throat swelling Cardiovascular: Cardiovascular: Denies chest pain, Denies lightheadedness and Denies dyspnea Respiratory: Respiratory: Denies cough, Denies dyspnea and Denies wheezing Gastrointestinal: Gastrointestinal: Denies abdominal pain, Denies change in bowel habits, Denies nausea and Denies vomiting Genitourinary: Genitourinary: Denies hematuria and Denies dysuria Musculoskeletal: Musculoskeletal: Reports as per HPI Integumentary/Breasts: Skin/Breast: Reports as per HPI Neurologic: Denies dizziness and Denies headache(s) Allergic/Immunologic: Allergic/Immunologic: Denies throat swelling and Denies wheezing PMFSH Past Medical History Medical History Kidney stones Overweight Patient denies significant medical history Surgical History Surgical History H/O eye surgery H/O mastopexy Hx of cosmetic surgery LAP-BAND surgery status Social History Social History Smoking status: Never smoker Alcohol intake: never Substance use: never Substance use type: does not use Living arrangements: with family Gender identity (if verbalized by the patient): Female Sexual Orientation (if Verbalized by the Patient): Straight or Heterosexual Spiritual care concerns: No Meds Home Medications and Allergies Home Medications ?Medication ?Instructions ?Recorded ?Confirmed ?Type valacyclovir 500 mg tablet 500 mg PO DAILY 01/05/21 09/19/24 History Allergies Allergy/AdvReac Type Severity Reaction Status Date / Time No Known Allergies Allergy Unknown Verified 09/19/24 08:04 Vital Signs Vital Signs - 24 hr 09/19/24 08:05 Temperature 97.7 F Pulse Rate 70 Respiratory Rate 18 Blood Pressure 113/77 Pulse Oximetry 99 Oxygen Delivery Room Air Exam Const: General: no acute distress and alert Orientation/consciousness: patient oriented x3 HENMT: Head: normocephalic and atraumatic Ears: hearing grossly normal bilaterally Face/Nose/Sinus: Normal nares present Mouth: Yes Normal oral and palatal mucosa present Eyes: Periorbital: periorbital findings normal Sclera: sclerae normal EOM: EOMs intact bilaterally Neck: Neck: normal visual inspection, no lymphadenopathy and trachea midline Chest: Chest palpation & inspection: normal inspection of the chest Resp: Effort & Inspection: normal respiratory effort Auscultation: clear to auscultation bilaterally Cardio: Jugular venous distension: no JVD Rate: regular rate Rhythm: regular rhythm Heart sounds: S1 normal heart sound present and S2 normal heart sound present Peripheral pulses: Peripheral pulses 2+ throughout GI: Inspection: normal to inspection GI Palp: Yes Soft to palpation, No Tenderness to palpation present (GI), No Guarding due to palpation present (GI) and No Rebound tenderness present Percussion: Yes normal to percussion Auscultation: normal bowel sounds : General: Yes no CVA tenderness Back/Spine/Pelvis: Back: no CVA tenderness Neuro: General: patient oriented x3, no focal motor deficits and CN's II-XI intact bilaterally Cognition (Neuro): normal cognition Speech: normal speech Motor exam (neuro): 5/5 motor strength present throughout Extrem: General: capillary refill normal and no clubbing, cyanosis or edema Assessment and Plan Assessment and plan (1) Screening for malignant neoplasm of colon: Code(s): Z12.11 - Encounter for screening for malignant neoplasm of colon Status: Acute Assessment and Plan: I have recommended colonoscopy. I have discussed the procedure, risks, b enefits, and alternatives. Questions were answered. Patient is agreeable to proceed.
[2024-09-19 08:57] VITALS: BP 91/57; PULSE 76; RESP 16; O2SAT 96
[2024-09-19 08:58] LABS: BEDSIDEPREGUCG Negative (Negative)
[2024-09-19 09:07] VITALS: BP 94/57; PULSE 83; RESP 20; O2SAT 96
[2024-09-19 09:17] VITALS: BP 101/68; PULSE 81; RESP 22; O2SAT 100
== END 2024-09-19 09:26 | disposition home or self-care (01) ==
PROVIDERS: PCP Family Medicine; Visit Provider Surgery
PROC: 0DJD8ZZ Inspection of Lower Intestinal Tract, Via Natural or Artificial Opening Endoscopic (ICD-10-PCS; CPT 45378; principal; 2024-09-19 09:30)
DX: Z12.11 Encounter for screening for malignant neoplasm of colon (principal)
CPT/HCPCS: 45378; J2704; J7120

== ENCOUNTER 2025-03-21 08:48 | Day surgery (SDC) | payer OTHER, SELFPAY ==
[2025-03-05 11:01] VITALS: BMI 26.6
--- OUTSIDE RECORDS SUMMARY | 2025-03-21 08:58 | XMS_ITS | Clinical Summary ---
Author Organization [facility] Address [address] [place] [address] Care Team Providers Care Stud Sheep Farmer Name Role Phone Unavailable Primary Care Provider [...] Cervical Cancer Screening (CCS) 2000 HPV/Cotest 2000 Cologuard 12/16/2015 Colonoscopy 12/16/2015 Colorectal Cancer Screening 12/16/2015 Immunochemical Fecal Occult Blood 12/16/2015 Pneumococcal Immunization (5 0+ years) (1 of 1 - PCV) 2020 Zoster Immunization (1 of 2) 2020 Influenza Immunization (#1) 2025 09/0 02/2021, 08/01/2017 SARS-COV-2 Immunization ( season) 2025 04/16/2021, 08/14/2020, 07/17/2020 Respiratory Syncytial Virus (RSV) Immunization (Adult) (1 - 1-dose 75+ series) 2045 DTaP/Tdap/Td Immunization Discontinued 08/01/2017 TdaP Immunization Completed 08/01/2017 Human Papillomavirus (HPV) Immunization Aged Out No longer eligible based on patient's age to complete this topic Meningococcal Immunization (ACWY) Aged Out No longer eligible based on patient's age to complete this topic Rotavirus Immunization Aged Out No lo nger eligible based on patient's age to complete this topic
--- OUTSIDE RECORDS SUMMARY | 2025-03-21 08:58 | XMS_ITS | Clinical Summary ---
Author Organization [facility] Address [address] [facility] [place] [address] Care Team Providers Care Printing Specialist Name Role Phone Silke Mulligan MD Primary Care Provider Source Comments [facility],non-owned Affiliates and Associated Physician Practices is amultiple site organization consisting of ambulatory clinics and hospital sitesin [place], [place], [place] and [place]. This disclosure is being madepursuant to the Care Everywhere program and may not contain all information available regarding this patient. Last updated 18.[facility] Allergies No known active allergies Medications * Be aware that medications may not be up to date on this document. Alwaysverify current medications with the patient. ValACYclovir HCl (VALTREX PO) Active HYDROCHLOROTHIA ZIDE PO Active fluticasone propionate (FLONASE) 50 MCG/ACT nasal spray [place] 2 sprays into each nostril once daily 1 bottles 05/01/2017 Active Active Problems Problem Noted Date Diagnosed Date Morbid obesity 06/22/2009 Social History Tobacco Use Types Packs/Day Years Used Date Smoking Tobacco: Never Smokeless Tobacco: Never Comments Unknown Sex and Gender Information Value Date Recorded Sex Assigned at Not on file Legal Sex Female 7:19 AM AIRCRAFT MAINTENANCE SUPERVISOR Gender Identity Not on file Sexual Orientation Not on file Last Filed Vital Signs Vital Sign Reading Time Taken Comments Blood Pressure 112/68 05/01/2017 11:51 AM AIRCRAFT MAINTENANCE SUPERVISOR Pulse 68 05/01/2017 11:51 AM AIRCRAFT MAINTENANCE SUPERVISOR Temperature 37.2 C (99 F) 05/01/2017 11:51 AM AIRCRAFT MAINTENANCE SUPERVISOR Respiratory Rate 16 05/01/2017 11:51 AM AIRCRAFT MAINTENANCE SUPERVISOR Oxygen Saturation 97% 05/01/2017 11:51 AM AIRCRAFT MAINTENANCE SUPERVISOR Inhaled Oxygen Concentration - - Weight 79.4 kg (175 lb) 05/01/2017 11:51 AM AIRCRAFT MAINTENANCE SUPERVISOR Height 167.6 cm (5' 6) 05/01/2017 11:51 AM AIRCRAFT MAINTENANCE SUPERVISOR Body Mass Index 28.25 05/01/2017 11:51 AM AIRCRAFT MAINTENANCE SUPERVISOR Plan of Treatment Health Maintenance Due Date Last Done Comments COLOGUARD (AGES 45-75) - COLON CA SCREENING 1970 COLON MONITORING 1970 COLONOSCOPY - COLON CA SCREENING 1970 CT COLONOGRAPHY - COLON CA SCREENING 1970 Colorectal Cancer Screening 1970 FIT - COLON CA SCREENING 1970 FLEX SIG - COLON CA SCREENING 1970 MAMMOGRAM 1970 HIV SCREENING 1985 HEPATITIS C SCREENING 12/10/1988 DTAP/TDAP/TD VACCINES (1 - Tdap) 1989 HEPATITIS B VACCINE (1 of 3 - 19+ 3-dose series) 1989 LIPID TESTING 08/27/2013 08/27/2008 SCREENING FOR DIABETES 05/01/2017 9, 08/30/2008, 08/29/2008, Additional history exists PNEUMOCOCCAL VACCINE 50+ (1 of 1 - PCV) 2020 ZOSTER VACCINE (1 of 2) 2020 DEPRESSION SCREENING 06/12/2024 COVID-19 VACCINE (1 - 2023- season) 2025 INFLUENZA VACCINE (#1) 2025 HIB VACCINE Aged Out No longer [...] CDT) BUN 7 7.0 - 17.0 mg/dl [facility] Sodium 135(L) 137 - 145 mEq/L [facility] Potassium 4.3(DE) 3.6 - 5.0 mEq/L [facility] Chloride 104 98.0 - 107.0 mEq/L [facility] CO2 22 22.0 - 30.0 mEq/L [facility] Anion Gap 9.2 [facility] Glucose 170(H) 75 - 110 mg/dl [facility] Creatinine 0.7 0.7 - 1.2 mg/dl [facility] Calcium 8.9(DE) 8.4 - 10.2 mg/dl [facility] eGFR by MDRD 100.1 ml/min/1.7 3m2 [facility] BLOOD SPECIMEN / Unknown 08/30/2008 3:00 AM CDT Ron De La Cruz MD LAB - CHEMISTRY ORDERABLE S Final Result [facility] [address] [place] [address] * LIPID PROFILE (08/27/2008 4:23 PM CDT) Pathologist [facility] Cholesterol 148 120.0 - 200.0 mg/dl [facility] Triglycerides 91 0.0 - 250.0 mg/dl [facility] HDL Cholesterol 52 >40 mg/dl [facility] LDL Calculated 77.8 mg/dl [facility] Chol HDL Ratio 2.8 [facility] Comment Lipid [facility] Comment: Risk Classification HDL CHOL LDL CHOL TOTAL CHOL According to NCEP (mg/dl) (mg/dL) (mg/dl) Desirable >40 <130 < 200 Borderline/High - 130-159 200-239 High - >159 > 239 The total cholesterol to HDL cholesterol ratio may be used to predict risk for coronary heart disease in untreated patients according to data reported from the [place] Study by Kevin Brady M.D. The predictive [...] / Unknown 08/27/2008 4:23 PM CDT Narrative [facility] - 08/27/2008 5:09 PM CDT FAX [phone] Ron De La Cruz MD LAB - CHEMISTRY ORDERABLE S Final Result [facility] [address] [place] [address] from Last 3 Months or Most Recently Relevant to Health Maintenance Insurance ANTH Care Teams Printing Specialist Relationship Specialty Start Date End Date Silke Mulligan MD [address] [place] [phone] [facility] - General 09/21/10
--- OUTSIDE RECORDS SUMMARY | 2025-03-21 08:58 | XMS_ITS | Data Portability ---
Author Organization [place] - [facility], Main Office Address [address] [place] [address] Assessment Encounter Date Assessment Date Assessment LastModified by Organization Details LastModified Time 11/27/2023 11/27/2023 52-year-old female presents for follow-up [...] as needed. [email or web address] Not available 11/27/2023 10:04:54 02/19/2025 02/19/2025 01/24/2025: Danyel Kinney Chol 197, LDL 111 A1C 5.2 [email or web address] Not available 02/19/2025 18:34:14 Plan of Treatment Reminders Order Date Submit Date Provider Last Modified By Organization Details Last Modified Time Details Appointments Physical/ Annual Wellness 30 2025 03:30P M Dario meza MD Not available Not available Not available Lab lipid panel, serum [address] (Lab), [address] [place] [address] [address], [place], [address], 02/27/2025 11:46:19 CMP, serum or plasma [address] (Lab), [address] [place] [address], [place], [address], 02/27/2025 11:46:33 CBC w/ auto diff [address] (Lab), [address] [place] [address], [address], 02/27/2025 11:57:13 TSH + free T4, serum [address] (Lab), [address] [place] [address], [place], [address], 02/27/2025 16:22:04 HbA1c (hemoglob in A1c), blood [address] (Lab), [address] [place] [address], [address], 02/27/2025 16:22:21 Referral None recorded. Procedures injection /aspirati on joint/bur sa (PROC) - in office procedure , administe red by provider 2023 024 [email or web address] In-Office Order, Internal Use Only DO Not Attach Compendium DO Not Attach Compendium, Do Not Delete/merge, [id number] 11/27/2023 11:39:23 Surgeries None recorded. Imaging DEXA, axial skeleton - Please call patient to schedule. 2024 025 [facility] ([facility] Sched[facility]), [address] [place], [address], 02/24/2025 09:33:20 Medication Orders Kenalog 10 mg/mL suspensio n for injection 2023 024 [id number] [id number], [address] [facility], [place], [place], [id number], 12/27/2023 03:27:57 ropivacai ne (PF) 5 mg/mL (0.5 %) injection solution 2023 024 [facility]63709 41 Not available 12/27/2023 03:27:58 nitrofura ntoin monohydra te/macroc rystals 100 mg capsule 2023 024 [facility] #[id number], [address] [place], [place], [id number], 02/19/2025 14:58:00 metaxalon e 800 mg tablet 2023 024 [id number], [address], [place], [id number], 02/19/2025 14:57:52 Patient TargetsNo targets recorded. Patient InstructionsNo instructions recorded. Reason for Referral None Reported. Results Created Date Observation Date Name Description Value Unit Range Abnormal Flag Note LastModifiedBy Organization Detail LastModifiedTime 01/24/2001/23/2025 urina lysis , dipst ick Leukocytes (reference range: negative oneil/ l) Small Not Available [facility], [place], [address], 01/23/2025 10:34:03 01/24/2001/23/2025 urina lysis , dipst ick Nitrite (reference rage: negative mg/dl) negati ve Not Available s_[address], [place], [address], 01/23/2025 10:34:03 01/24/2001/23/2025 urina lysis , dipst ick Urobilinogen (reference range: 0.2-1 mg/dl) 0.2 Not Available s_[address], [place], [address], 01/23/2025 10:34:03 01/24/2001/23/2025 urina lysis , dipst ick Protein (reference range: negative mg/dl) Negati ve Not Available [address], [place], [address], 01/23/2025 10:34:03 01/24/2001/23/2025 urina lysis , dipst ick pH (reference range: 5-7) 5.5 Not Available [address], [place], [address], 01/23/2025 10:34:03 01/24/2001/23/2025 urina lysis , dipst ick Blood (reference range: negative Wicho/ l) Modera te Not Available [address], [place], [address], 01/23/2025 10:34:03 01/24/2001/23/2025 urina lysis , dipst ick Specific Sondheimer (reference range: 1.005-1.030) 1.015 Not Available [address], [place], [address], 01/23/2025 10:34:03 01/24/2001/23/2025 urina lysis , dipst ick Ketone (reference range: negative mg/dl) Negati ve Not Available [address], [place], [address], 01/23/2025 10:34:03 01/24/2001/23/2025 urina lysis , dipst ick Bilirubin (reference range: negative mg/dl) Negati ve Not Available [address], [place], [address], 01/23/2025 10:34:03 01/24/2001/23/2025 urina lysis , dipst ick Glucose (reference range: negative mg/dl) Negati ve Not Available [address], [place], [address], 01/23/2025 10:34:03 01/24/20 25 01/23/2025 urina lysis , dipst ick Appearance Slight ly Cloudy Not Available [address], [place], [address], 01/23/2025 10:34:03 01/24/20 25 01/23/2025 urina lysis , dipst ick Color Pale Yellow Not Available [address], [place], [address], 01/23/2025 10:34:03 09/20/19 24 XR, shoul radha No observ ation record ed. [email or web address] [facility] [address] [facility] [address], [place], [address], 09/22/2023 12:59:20 08/29/19 25 08/28/2024 imagi ng/di agnos tic resul t No observ ation record ed. [facility] [address], [place], [address], 08/28/2024 17:13:33 02/25/20 25 02/24/2025 DEXA, axial skele ton [facility] [address] [facility], [place] [address] Patien t Name: JUAN PRATER Access ion #: [id number] Sex: F : 1970 3 Locati on: RAD Attend ing Physic mi: GEMMA CARVER Orderi ng Physic mi: GEMMA CARVER Exam Date: 9/15/2 025 8:12 AM Exam Name: XR DEXA-H IPS PELVIS SPINE Admitt ing Diagno sis(es ): RADIOL OGY REPORT - FINAL EXAM: XR DEXA-H IPS PELVIS SPINE HISTOR Y: Asympt omatic menopa usal state 54-yea r-old female with osteop orosis screen ing. COMPAR BJORN: None availa ble. TECHNI QUE: Dual energy x-ray of absorp tion examin ation of the bilate ral hips and lumbar spine was perfor med in AP projec tion. FINDIN GS: Lumbar Spine (L1-L4 ): The mean bone minera l densit y is 0.973 g/cm2 hydrox yapati te, correl ating with T-scor e of -1.8. Bilate ral hips: The mean bone minera l densit y is 0.874 g/cm2 calciu m hydrox yapati te, correl ating with T-scor e of -1.1. Page 1 of 2 [facility] Name[facility] Access ion #: [id number] Sex: F : 1970 3 Exam Date: 8:12 AM Exam Name: XR DEXA-H IPS PELVIS SPINE Admitt ing Diagno sis(es ): Risk of major osteop orotic fractu re 5.7%; risk of hip fractu re 0.3%. IMPRES CATA: 1. The patien t's lumbar spine T-scor e is consis tent with osteop enia. 2. The patien t's bilate ral hip T-scor e is consis tent with osteop enia. Accord ing to the World Health Organi zation , T-scor e values greate r than -1.0 are normal , values betwee n -1.0 and -2.5 are catego rized as osteop enia, T-scor e of -2.5 or more are catego rized as osteop orosis . Create d and electr onical ly signed by: Luis Fernando cage MD Signed Date: 8:31 AM (CT) Dictat ed by: Luis Fernando cage MD DD: 8:31 AM (CT) DT: 8:31 AM (CT) Page 2 of 2 INTERFACE [facility] (Imaging) [address] [place], [address], 02/24/2025 09:33:20 02/25/20 25 02/24/2025 imagi ng/di agnos tic resul t No observ ation record ed. [facility] [address] [place], [address], 02/24/2025 09:36:02 Result Notes Documentation Provider Name and Address Organization Details Recorded Time Dexa, Axial Skeleton : [facility] [address] [place] [address] Patient Name: JUAN PRATER Sex: F : 1970 Location: [facility] Attending Physician: DARIO DE LEON Ordering Physician: DARIO DE LEON Exam Date: 02/24/2025 8:12 AM Exam Name: XR DEXA-HIPS PELVIS SPINE Admitting Diagnosis(es): RADIOLOGY REPORT - FINAL EXAM: XR DEXA-HIPS PELVIS SPINE HISTORY: Asymptomatic menopausal state 54-year-old female with osteoporosis screening. COMPARISON: None available. TECHNIQUE: Dual energy x-ray of absorption examination of the bilateral hips and lumbar spine was performed in AP projection. FINDINGS: Lumbar Spine (L1-L4): The mean bone mineral density is 0.973 g/cm2 hydroxyapatite, correlating with T-score of -1.8. Bilateral hips: The mean bone mineral density is 0.874 g/cm2 calcium hydroxyapatite, correlating with T-score of -1.1. Page 1 of 2 [facility] Patient Name: JUAN PRATER Sex: F : 1970 Exam Date: 02/24/2025 8:12 AM Exam Name: XR DEXA-HIPS PELVIS SPINE Admitting Diagnosis(es): Risk of major osteoporotic fracture 5.7%; risk of hip fracture 0.3%. IMPRESSION: 1. The patient's lumbar spine T-score is consistent with osteopenia. 2. The patient's bilateral hip T-score is consistent with osteopenia. According to the World Health Organization, T-score values greater than -1.0 are normal, values between -1.0 and -2.5 are categorized as osteopenia, T-score of -2.5 or more are categorized as osteoporosis. Created and electronically signed by: Luis Fernando Gale MD Signed Date: 02/24/2025 8:31 AM (CT) Dictated by: Luis Fernando Gale MD (CT) (CT) Page 2 of 2 Not Available [facility] 02/24/2025 09:33:20 Problems Name Problem SNOMED Code Status Onset Date Resolution Date Notes Provider Name and Address Organization Details Recorded Time Edema 766547641 Active Not Available [facility] 3 06:44:53 Obesity 630186050 Active Not Available [facility] 3 06:44:53 Upper respirator y infection 31263994 Active Not Available [facility] 3 06:44:54 Fatigue 23715239 Active Not Available [facility] 3 06:44:54 Recurrent urinary tract infection 017649942 Active 2022 Draio carrington MD [address], [place], [address] , [employer] [facility] 5 16:01:49 Hypertensi ve disorder 46441662 Active 2022 ZURDO Mathews [address], [place], [address] , [employer] [facility] 3 15:33:23 Weight gain 7370178 Active 2022 Alana Lutz MD [address], [place], [address] , [employer] [facility] [employer] [facility] 3 16:42:08 Pain of right shoulder joint 8826490434346 9100 Active 2023 Alana Lutz MD [address], [place], [address] , [facility] 4 13:31:35 Neck pain 44838128 Active 2023 Cami Pabloison null, [facility] 4 16:42:15 Acute sinusitis 57444973 Active 2023 NILSA Torres [address], [address], [place], [address] , [facility] 4 14:26:49 Cough 66478209 Active 2023 NILSA Torres [address], [address], [place], [address] , [facility] 4 14:27:05 Acute upper respirator y infection 67066263 Active 2023 NILSA Rodriguez [address], [place], [address] , [facility] 4 14:12:10 Dysuria 54512949 Active 2024 Genesis Liu RN null, [facility] 5 10:34:06 Urinary tract infectious disease 03986032 Active 2024 NILSA Rodriguez [address], [place], [address] , [facility] 5 11:03:39 Problem Notes None recorded. Procedures Surgical History Date Name Laterality Status Provider Name and Address Organization Details Recorded Time 11/27/19 24 Ortho - Cortisone Injection completed Luis Fernando Swift MD [address], [place], [address], [facility] 11/27/2023 10:01:41 01/13/20 21 abdominoplasty completed Not Available [facility] 08/10/2022 06:40:03 01/13/20 21 thigh reduction completed Not Available [facility] 08/10/2022 06:40:03 06/12/19 14 Ablation completed Not Available [facility] 08/10/2022 06:40:03 section completed Talia Valdez MA [facility] 02/19/2025 15:01:01 tonsillectomy completed DAYANA Cortez [facility] 02/19/2025 15:01:31 strabismus surgery completed Talia Valdez MA [facility] 02/19/2025 15:01:42 Tubal Ligation completed Talia Valdez MA [facility] 02/19/2025 15:02:08 Imaging Results None recorded. Procedure Notes None recorded. Medical Equipment None [...] ORAL ROUTE ONCE DAILY FOR 4 DAYS 02/19 completed Not Available Not Available Not Available ibuprofen 800 mg tablet TAKE 1 TABLET BY MOUTH EVERY 8 HOURS NEEDED FOR PAIN 02/19 completed Not Available Not Available Not Available ofloxacin 0.3 % eye drops 11/14 completed Not Available Not Available Not Available fluconazole 150 mg tablet TAKE 1 TABLET BY MOUTH FOR 1 DOSE DIRECTED. TAKE SECOND TABLET IN 72 HOURS IF NEEDED 04/26 completed Not Available Not Available Not Available tretinoin 0.025 % topical cream APPLY A THIN LAYER TOPICALLY TO FACE/HAND S EVERY NIGHT AT BEDTIME AFTER WASHING. LAYER WITH MOISTURIZ ER NEEDED active Not Available Not Available No t Available phenazopyri dine 200 mg tablet TAKE 1 TABLET BY MOUTH THREE TIMES DAILY NEEDED FOR PAIN 04/25 completed Not Available Not Available Not Available ondansetron HCl 4 mg tablet TAKE 1 TABLET BY MOUTH EVERY 8 HOURS NEEDED FOR NAUSEA AND VOMITING active Not Available Not Available No t Available valacyclovi r 500 mg tablet TAKE 1 TABLET ONCE DAILY active Not Available Not Available No [...] 1 mL by injection route. 2023 active [facility]: 0003- [phone]- 20 Not Available Not Available Not Available lorazepam 2 mg tablet 11/14 completed Not Available Not Available Not Available benzonatate 100 mg capsule 08/01 completed Not Available Not Available Not Available cephalexin 500 mg capsule TAKE 1 CAPSULE BY MOUTH EVERY 8 HOURS 02/19 completed Not Available Not Available Not Available cyanocobala min (vit B-12) 1,000 mcg/mL injection solution monthly 02/18 completed Not Available Not Available Not Available nitrofurant oin macrocrysta l 100 mg capsule TAKE 1 CAPSULE BY MOUTH DAILY 02/19 completed Not Available Not Available Not Available [...] completed Not Available Not Available Not Available Bactrim DS 800 mg-160 mg tablet Take 1 tablet every 12 hours by oral route for 7 days. 02/13 completed Not Available Not Available Not Available metaxalone 800 mg tablet TAKE 1 TABLET BY MOUTH THREE TIMES DAILY NEEDED 02/19 completed Not Available Not Available Not Available cyclobenzap rine 5 mg tablet TAKE 1 TABLET BY MOUTH THREE TIMES DAILY DIRECTED 10/04 completed Not Available Not Available Not Available Restasis 0.05 % eye drops in a dropperette INSTILL 1 DROP INTO EACH EYE TWICE DAILY active Not Available Not Available No t Available Zovirax 5 % topical cream 05/20 completed Not Available Not Available Not Available nitrofurant oin monohydrate /macrocryst als 100 mg capsule TAKE 1 CAPSULE BY MOUTH EVERY 12 HOURS 02/19 completed Not Available Not Available Not Available hydrochloro thiazide 12.5 mg tablet TAKE 1 TABLET DAILY 11/14 completed Not Available Not Available Not Available estradiol-n orethindron e acet 0.5 mg-0.1 mg tablet TAKE 1 TABLET DAILY active Not Available Not Available No t Available ropivacaine (PF) 5 mg/mL (0.5 %) injection solution Take 4 mL by injection route. 2023 active [facility] 42422 -[phone]- [phone] Not Available Not Available Not [...] Not Available Not Available No t Available Zepbound 2.5 mg/0.5 mL subcutaneou s pen injector INJECT 2.5 MG UNDER THE SKIN ONCE WEEKLY active Not Available Not Available No t Available Zepbound 7.5 mg/0.5 mL subcutaneou s pen injector INJECT 7.5MG UNDER THE SKIN ONCE WEEKLY. 02/19 completed Not Available Not Available Not Available Vitals Date Recorded Body height Body mass index (BMI) Body weight Body temperature Heart rate Oxygen saturation Oxygen saturation in Arterial blood by Pulse oximetry Systolic And Diastolic Provider Name and Address Organization Details Last Updated DateTime 4 167.64 cm 26.3 kg/m2 84520.5 6 g 98.4 [degF] 67 /min 99 % 99 % 118/86 mm[Hg] Cheli Lr RN [facility] 4 08:05:45 Date Recorded Body height Body mass index (BMI) Body weight Pain severity - 0-10 verbal numeric rating [Score] - Reported Provider Name and Address Organization Details Last Updated DateTime 11/27/2023 167.64 cm 25.8 kg/m2 49101.78 g 4 MARCOS Mcneal [place] [employer] [facility] 11/27/2023 09:34:50 Date Recorded Body height Body mass index (BMI) Body weight Body temperature Pain severity - 0-10 verbal numeric rating [Score] - Reported Heart rate Oxygen saturation Oxygen saturation in Arterial blood by Pulse oximetry Systolic And Diastolic Provider Name and Address Organization Details Last Updated DateTime 5 167.64 cm 28.9 kg/m2 71975.0 3 g 98.3 [degF] 0 79 /min 96 % 96 % 114/60 mm[Hg] Talia Valdez MA [place] [employer] [facility] 14:56:42 Social History Question Answer Notes LastModified by Organizat ion Details LastModified Time Tobacco Smoking Status Never Smoker Not Available [facility] 08/10/2022 06:39:20 What Is Your Level Of Caffeine Consumption? None Information not available 02/19/2025 In The 14 Days Before Symptom Onset, Have You Had Close Contact With A Laboratory-confir med COVID-19 While That Case Was Ill? No Information not available 02/19/2025 In The 14 Days Before Symptom Onset, Have You Had Close Contact With A Person Who Is Under Investigation For COVID-19 While That Person Was Ill? No Information not available 02/19/2025 What Type Of Diet Are You Following? REGULAR Information not available 02/19/2025 Have There Been Any Changes To Your Family Or Social Situation? No Information no t available 02/19/2025 Do You Use Insect Repellent Routinely? No Information not available 02/19/2025 Where Do You Live? [facility] Information not available 02/19/2025 What Was The Date Of Your Most Recent Tobacco Screening? 02/19/2025 Information not available 02/19/2025 How Many Children Do You Have? 2 Information not available 02/19/2025 Do You Have Any Pets? Yes Information not available 02/19/2025 What Is Your Relationship Status? Information not available 02/19/2025 Do You Use Your Seat Belt Or Car Seat Routinely? Yes Information not available 02/19/2025 Do You Have Smoke And Carbon Monoxide Detectors In Your Home? Yes Information not available 02/19/2025 Are You Passively Exposed To Smoke? No Information no t available 02/19/2025 Are There Any Smokers In Your House? No Information not available 02/19/2025 Do You Use Sunscreen Routinely? No Information not available 02/19/2025 Have You Recently Traveled Abroad? Yes 11/2024 Information not available 02/19/2025 Do You Have Any Dietary Restrictions? No Information not available 02/19/2025 Sex: Unknown Functional Status Question Answer Note LastModified by Organizat ion Details LastModified Time Do you use any illicit or recreational drugs? No Information not available 02/19/2025 Do you or have you ever used any other forms of tobacco or nicotine? No Information not available 02/19/2025 What is your level of alcohol consumption? Occasional Information not available 02/19/2025 Are you currently employed? 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 [id number] Information not available 02/19/2025 Family History Relationship Description Onset Age of this Age Resolved Age Notes LastModified by Organization Details LastModified Time Father Heart disease [id number] Not available 08/10/2022 06:40:04 Maternal Grandfather Heart disease [id number] Not available 08/10/2022 06:40:04 Paternal Grandfather Heart disease [id number] Not available 08/10/2022 06:40:04 Mother Family history of stroke frivastorres Not available 03/2025 14:49:36 Notes:No breast, no colon, n o ovary cancer Medical History No medical history recorded. Gynecological History Statement/Question Response How many live births 2 Date of Last Colonoscopy Date of Last Mammogram Date of LMP Most Recent Bone Density Date of Last Pap Current Control Method Tubal Ligat ion Obstetrics History GPAL:G 2 P 2 0 0 2 Type Value Multiple Births 0 Full Term 2 Induced 0 Spontaneous 0 Premature 0 Living 2 Ectopics 0 Total 2 Immunizations Vaccine Type Date Status Note Provider Nam e and Address Organization Details Recorded Time Influenza, MDCK, quadrivalent, PF 3 completed Elizabeth Maldonado RN null, [place] [facility] [place] [facility] 03/22/2023 09:43:09 COVID-19, mRNA, LNP-S, PF, 100 mcg/0.5mL dose or 50 mcg/0.25mL dose 1 completed Not Available [facility] 02/19/2025 14:50:25 COVID-19, mRNA, LNP-S, PF, 100 mcg/0.5mL dose or 50 mcg/0.25mL dose 1 completed Not Available [facility] 02/19/2025 14:50:25 COVID-19, mRNA, LNP-S, PF, 100 mcg/0.5mL dose or 50 mcg/0.25mL dose 1 completed Not Available [facility] 02/19/2025 14:50:25 zoster recombinant 3 completed Not Available [facility] 02/19/2025 14:50:25 zoster recombinant 4 completed Not Available [facility] 02/19/2025 14:50:25 Influenza, split virus, quadrivalent, preservative 2 completed Not Available [facility] 08/10/2022 06:52:35 Influenza, split virus, quadrivalent, PF 1 completed Not Available [facility] 08/10/2022 06:52:36 Influenza, split virus, quadrivalent, PF 8 completed Not Available [facility] 08/10/2022 06:52:36 Tdap 8 completed Not Available [facility] 08/10/2022 06:52:36 Past Encounters Encounter ID Performer Location Encounter Start Date Encounter Closed Date Diagnosis/Indication Diagnosis SNOMED-CT Code Diagnosis ICD10 Code Diagnosis IMO Codes Diagnosis Note [id number] Alana Lutz MD [facility] [place] [address] [place] [address] 02/18/2021 00:00:00 03/04/2021 14:19:12 [id number] Al[facility]utz [facility] [place] [address] [place] [address] 04/25/2022 00:00:00 04/26/2022 07:59:22 [id number] [facility] [place] [address] [place] [address] 11/14/2022 15:12:08 11/14/2022 15:39:08 Recurrent urinary tract infection 207245816 N39.0 She denies any current symptoms, but has had to be treated twice. Finished last dose of bactrim this AM. Recheck urine to make sure it has cleared. Candidiasis of vagina 72 701575 B37.31 Hypertensive disorder 38 267440 I10 Will d/c HCTZ. Continue to monitor blood pressure. Dietary ma nagmagy surveillance 652134902 Z71.3 Has done very well with weight loss.Took last dose of mounjaro 2 weeks ago, will try to maintain weight loss with just weight watchers program/li [employer]. [id number] Alana Lutz MD [facility] Primary Care [facility] [address] [place] [address] 04/26/2023 16:26:34 04/27/2023 17:23:04 Adult health examination 164731511 Z00.00 Z13.220 Z13.1 cologuard repeat 2023mammog kelly done aps with Dr. Brianna Farias fasting labsrecomm end covid booster, recommend shingles vaccinehas gotten flu vaccine History of bariatric surgical procedure 595585290 Z98.84 Weight gain [id number] R63. 5 Renewal of prescription [id number] Z76.0 will try nitrofuran toin for prevention 50 mg daily while taking moujaro Recurrent urinary tract infection [id number] N39.0 repeat UA with next lab draw [id number] Luis Fernando Swift MD [facility] 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, notes aggravatio n of shoulder while performing care-ROM and strength are intact-con tinue with care per Pain of ri ght shoulder joint [id number] [id number] M25.511 -notes hx of frozen shoulder after [...] with work-trial metaxalone Recurrent urinary tract infection [id number] N39.0 -recurrent UTI while on mounjaro-m acrobid worked well for her in the past-refil l nitro given [id number] Luis Fernando Swift MD [address] [place] [address] 11/27/2023 09:31:08 11/27/2023 10:03:17 Pain of right shoulder joint [id number] 8886612 M25.283 [id number] NILSA Rodriguez [facility] Primary Care [address] [place] [address] 01/23/2025 10:48:20 01/23/2025 11:02:09 [id number] NILSA Rodriguez [facility] Primary Care [address] [place] [address] 01/29/2025 14:02:39 01/29/2025 14:28:00 [id number] Dario carrington MD [facility] Primary Care [address] [place] [address] 02/19/2025 14:47:57 02/19/2025 16:01:55 Screening due [id number] Z13.9 [id number] C-scope: Sarah 03/02/2021 States that she did do the c-scope recently and was told it was now not needed for 10 years Mammogram: She get this from her OB DEXA: Get this done Get yearly flu shot, get Tdap if not doneCan do Shingrix and COVID 19 booster RTC yearly as per her requestDo labsER if worse, she did verbalize her understand ing of the world Postmenopausal state [id number] Z78.0 473565 Hyperlipid emia screening 636811392 Z13.220 308998 Not on any medication s, declined, labs done by her MD at her job Recurrent urinary tract infection 718126503 N39.0 [id number] Has noted UTIs in the pastNone todayAdvis ed to call if any UTI and she may need to get a referral to urology Health Concerns Section Related Observation LastModified by Organization Detai ls LastModified Time None Recorded Concern Status LastModified by Organization Details LastModified Time None Recorded Advance Directives Directive None Recorded Payers Insurance Date Sequence Insurance Name Policy Number Policy Ceballos Covered Member ID Ceballos Member ID Guarantor Name 02/19/2025 1 [place] [id number] Stewart Prater [id number] Juan Prater 02/25/2025 1 [employer] (POS) [id number] Juan Prater [id number] Juan Prater 11/14/2022 1 [place] [id number] Stewart Prater [id number] Juan Prater 02/25/2025 1 [employer] (POS II) [id number] Juan Prater [id number] Juan Prater Notes Date Note Type Note Provider Name and Address Organization Details Recorded Time 10/05/2023 text/html pt is here for neck and shoulder pain NILSA Torres [address], [facility], [place], [address], [place] [facility] 10/05/2023 08:29:52 02/19/2025 text/html OV 02/19/2025:Here to establish care Present Hx:Obesity Here to discuss aboveShe states that she did do the labs via her job fair on 01/24/2025She also states that she does get her weight loss GLP-1 via her job also Dario De Leon MD [address], [address], [place], [address], [place] - [facility] 02/19/2025 18:35:18 OBGyn Episode No OBEpisode recorded.
--- OUTSIDE RECORDS SUMMARY | 2025-03-21 08:58 | XMS_ITS | Encounter Summary ---
Author Organization [facility] Address [facility] [place] [address] Care Team Providers Care Cooperative Education Coordinator Name Role Phone Pcp, Unknown Primary Care Provider Estefanía e Silke Mulligan MD Primary Care Provider + [phone] Silke Mulligan MD Primary Care Provider + [phone] Reason for Visit * Reason Onset Date Comments Appointment 08/17/2009 Pt no call/no sh ow for physician office visit this date, will contact patient to reschedule. Encounter Details Date Type Department Care Team (Late st Contact Info) Description 08/17/2009 Telephone [facility] [employer] [facility] [address] [place] [address] [place] [address] [address] Appointment (Pt no call/no show for physician office visit this date, will contact patient to reschedule.) Social History Tobacco Use Types Packs/Day Years Used Date Smoking Tobacco: Never Assessed Comments Unknown Sex and Gender Information Value Date Recorded Sex Assigned at Not on file Legal Sex Female 7:19 AM [employer] Gender Identity Not on file Sexual Orientation Not on file documented as of this encounter Plan of Treatment Not on file documented as of this encounter Visit Diagnoses Not on filedocumented in this encounter Care Teams Cooperative Education Coordinator Relationship Specialty Start Date End Date Pcp, [place] [address] PCP - General 11/30/09 Silke Mulligan MD [address] [place] [address] [address] [place] [phone] PCP - General 08/20/08 11/29/09 Silke Mulligan MD [address] [place] [address] [place] [id number] PCP - General 09/21/10 documented as of this encounter
[2025-03-21 09:03] VITALS: BP 126/80; PULSE 71; RESP 15; TEMP 37.1; O2SAT 100
[2025-03-21] MEDS: TRANEXAMIC ACID 1,000 MG/10 ML AMPUL 1000 MG IV PUSH (09:25)
[2025-03-21] MEDS: LACTATED RINGERS 1,000 ML 30 ML IV CONT ×2 (09:25→13:51)
--- NOTE | 2025-03-21 10:57 | WPDHPUPDATE1 ---
History and Physical Update Update Date/Time: 03/21/25 10:57 History and Physical has been reviewed, including an updated exam of the patient. There are NO changes in the patient's condition. Risks, benefits, and alternatives have been discussed and questions answered. Patient agrees to proceed with procedure.
--- NOTE | 2025-03-21 11:06 | SUR.PREOP ---
This RN present during patient marking.
--- NOTE | 2025-03-21 11:11 | P.OP_ITS ---
Procedure Note - Detailed Date of Procedure 03/21/25 Pre-op Diagnosis Skin Laxity Post-op Diagnosis Same Procedure Performed Bilateral brachioplasty (revision) Surgeon David Bledsoe MD Anesthesia General Indications History of brachioplasty in 2011 (no liposuction). Continued laxity would like to proceed with repeat procedure. She understands how revision of this procedure increases her risks of complications. Findings Lipoaspirate: 1,500 cc Description of Procedure Here for the above procedures. Preoperatively risks, benefits, alternatives were discussed again today in extensive detail. I want to be very realistic about the risks involved as well as expectations. Made sure answered all of their questions to satisfaction. They voiced a clear understanding. Consent obtained. Patient was marked in the preoperative holding area with their verification. Taken to the operating placed supine on the operating table. Anesthesia was provided by anesthesiology. Prepped and draped in a standard sterile fashion. Surgical time-out was taken. Stab incisions were made and I tumesced with a tumescent solution. Once adequate time for hemostasis suction lipectomy was with a 4 mm basket daren lombardi based on S.A.F.E. technique. This was completed based on preoperative planning, intraoperative observation, and rolling pinch test which was in full agreement. I completely de-fatted the planned resection area and a strip avulsion technique was completed. Starting proximal to distal a 10 blade was used to excise the intervening skin and this was tacked as we proceed to ensure good closure. This was closed using a 2-0 Quill, 3-0 strata fix, running subcuticular 4-0 Monocryl, and tissue glue. Brijjits applied. Dressings were placed. Tolerated the procedure well. Taken to the PACU without difficulty. All instrument sponge counts were correct at the end of the case. Estimated Blood Loss 40 Drains No Packing No Pathology None sent Complications No immediate complications Condition Stable Disposition PACU
--- NOTE | 2025-03-21 11:11 | WPDANESEPPF ---
Anes - Initial Pre Proc Eval Procedure: Operation Date: 03/21/25 10:30 Proposed Procedures p Bilateral Brachioplasty - David Bledsoe MD Date/Time: 03/21/25 11:11 Surgeon: David Bledsoe MD Pre Op Diagnosis: Skin Laxity Patient Data Age: 54 Gender: F Height: 1.68 m Weight: 79.25 kg Last Vital Signs Temp 98.7 F 03/21/25 09:03 Pulse 71 03/21/25 09:03 Resp 15 03/21/25 09:03 BP 126/80 03/21/25 09:03 Pulse Ox 100 03/21/25 09:03 O2 Del Method Room Air 03/21/25 09:03 Allergies Allergy/AdvReac Type Severity Reaction Status Date / Time No Known Allergies Allergy Unknown Verified 03/21/25 09:00 Home Medications ?Medication ?Instructions ?Recorded ?Confirmed ?Type valacyclovir 500 mg tablet 500 mg PO DAILY 01/05/21 03/21/25 History estradiol-norethindrone acet 0.5 1 tablet PO DAILY 03/04/25 03/21/25 History mg-0.1 mg tablet Held on 03/05/25. Instructions: .Provider Order semaglutide (weight loss) 0.5 0.5 mg subcut WEEKLY 03/04/25 03/21/25 History mg/0.5 mL subcutaneous pen injector (Wegovy) Held on 03/05/25. Instructions: .Provider Order cetirizine 10 mg tablet (24Hour 10 mg PO DAILY PRN allergy symptoms 03/05/25 03/21/25 History Allergy) cranberry 500 mg capsule 500 mg PO DAILY 03/05/25 03/21/25 History folic acid 1 mg tablet 1 mg PO DAILY 03/05/25 03/21/25 History mecobalamin (vitamin B12) 1,000 1,000 mcg PO DAILY 03/05/25 03/21/25 History mcg chewable tablet vitamin K2 45 mcg capsule 45 mcg PO DAILY 03/05/25 03/21/25 History Patient hx anesthesia problems: none Family hx anesthesia problems: none Results Review: All pre-operative results and documents have been reviewed as part of the pre-operative evaluation. [facility] Past Medical History Medical History (Reviewed 04/13/24 @ 08:40 by AmberCARLOS Abdullahi Kidney stones Overweight Patient denies significant medical history Surgical History Surgical History H/O eye surgery H/O mastopexy Hx of cosmetic surgery LAP-BAND surgery status Social History Social History Smoking status: Never smoker Second hand tobacco smoke exposure: Yes Alcohol intake: never Alcohol use details: occasional Substance use: never Substance use type: does not use Living arrangements: with family Gender identity (if verbalized by the patient): Female Sexual Orientation (if Verbalized by the Patient): Straight or Heterosexual Spiritual care concerns: No Anes - Eval Final PreProcedure Day of Procedure 03/21/25 11:11 Patient weight: overweight Heart: regular rate and rhythm Lungs: clear to auscultation and normal air movement Airway: Mallampati scale Neurological: alert and oriented Last oral intake: >/= 8 hours ASA classification: II Emergent: no Anesthetic plan: proceed Anesthesia type and monitoring: general Results Review: All pre-operative results and documents have been reviewed as part of the pre-operative evaluation. Informed Consent: The patient's anesthetic plan and its attendant risks and benefits were discussed with the patient/family/POA. Questions were solicited and answers provided to the satisfaction of the patient/family/POA.
[2025-03-21 13:51] VITALS: BP 132/81; PULSE 89; RESP 10; TEMP 36.2; O2SAT 99
--- NOTE | 2025-03-21 13:55 | WPDANESPN ---
Anes - Prog Note Post-Op Date/Time: 03/21/25 13:55 Cardiovascular status: normal Respiratory status: normal Airway patency: baseline Mental status: baseline Post-Op hydration status: normal Vital Signs: Last Vital Signs Temp 98.7 F 03/21/25 09:03 Pulse 71 03/21/25 09:03 Resp 15 03/21/25 09:03 BP 126/80 03/21/25 09:03 Pulse Ox 100 03/21/25 09:03 O2 Del Method Room Air 03/21/25 09:03 Pain Score (VAS): 0 Post-procedural complaints: none Patient Feedback: Patient satisfied with anesthetic care.
[2025-03-21 14:05] VITALS: BP 138/80; PULSE 78; RESP 16; O2SAT 99
[2025-03-21 14:20] VITALS: BP 132/80; PULSE 80; RESP 12; O2SAT 100
[2025-03-21 14:30] VITALS: BP 129/66; PULSE 75; RESP 16; O2SAT 100
[2025-03-21] MEDS: oxyCODONE HCL (*CRX) 5 MG TAB IR PO (14:55)
[2025-03-21 15:00] VITALS: BP 130/72; PULSE 80; RESP 16
--- NOTE | 2025-04-10 09:06 | WPDANESPN ---
Anes - Prog Note Post-Op Date/Time: 04/10/25 09:06 Cardiovascular status: normal Respiratory status: normal Airway patency: baseline Mental status: baseline Post-Op hydration status: normal Vital Signs: Last Vital Signs Temp 97.2 F L 03/21/25 13:51 Pulse 80 03/21/25 15:00 Resp 16 03/21/25 15:00 BP 130/72 03/21/25 15:00 Pulse Ox 100 03/21/25 14:30 O2 Del Method Room Air 03/21/25 15:00 Pain Score (VAS): 0 Post-procedural complaints: none Patient Feedback: Patient satisfied with anesthetic care.
== END 2025-03-21 15:14 | disposition home or self-care (01) ==
PROVIDERS: Visit Provider Surgery Plastic and Reconstructive Surgery
PROC: (CPT 15836; principal; 2025-03-21 10:30)
DX: Z41.1 Encounter for cosmetic surgery (principal); L57.4 Cutis laxa senilis
CPT/HCPCS: 15878; 15836; J3290